=== PATIENT | female | born 1980 | race Caucasian/White ===

== ENCOUNTER → 2017-05-23 | Outpatient (CLI) | payer OTHER ==
[2017-05-23 18:14] LABS: ALBUMIN 3.5 GM/DL (3.2-5.2); ALBUMIN/GLOBULIN RATIO 1.06 (1.00-1.93); ALKALINE PHOSPHATASE 62 U/L (45-117); ALT/SGPT 30 U/L (12-78); ANION GAP 9 MEQ/L (8-16); AST/SGOT 20 U/L (15-37); BLOOD UREA NITROGEN 9 MG/DL (7-18); CALCIUM LEVEL 8.4 MG/DL (8.5-10.1); CARBON DIOXIDE LEVEL 29 MEQ/L (21-32); CHLORIDE LEVEL 100 MEQ/L (98-107); CHOLESTEROL LEVEL 153 MG/DL (<200); CREATININE FOR GFR 0.51 MG/DL (0.55-1.02); FREE T4 1.11 NG/DL (0.76-1.46); GLOMERULAR FILTRATION RATE > 60.0 (>60); GLUCOSE, FASTING 76 MG/DL (70-105); POTASSIUM SERUM 3.6 MEQ/L (3.5-5.1); SODIUM LEVEL 138 MEQ/L (136-145); TOTAL PROTEIN 6.8 GM/DL (6.4-8.2); TRIGLYCERIDES LEVEL 107 MG/DL (<150)
== END ==
LOC: M WUC 12:31
PROVIDERS: ATTEND Nurse Practitioner Family
DX: F41.9 Anxiety disorder, unspecified (principal)

== ENCOUNTER → 2017-05-23 | Outpatient (CLI) | payer OTHER ==
[2017-05-23 17:13] LABS: BASO % 0.4 % (0.0-1.0); EOS % 0.8 % (0.0-3.0); IMMATURE GRANULOCYTE % 0.4 % (0-0); LYMPH # 1.1 10^3/uL (1.5-4.5); LYMPH % 20.2 % (24.0-44.0); MEAN CORPUSCULAR HEMOGLOBIN 29.4 pg (27.0-33.0); MEAN CORPUSCULAR HGB CONC 33.6 g/dl (32.0-36.5); MEAN CORPUSCULAR VOLUME 87.4 fl (80.0-96.0); MONO # 0.6 10^3/uL (0.0-0.8); MONO % 10.9 % (0.0-5.0); NEUTROPHILS # 3.5 10^3/uL (1.8-7.7); NEUTROPHILS % 67.3 % (36.0-66.0); PLATELET COUNT, AUTOMATED 198 10^3/uL (150-450); WHITE BLOOD COUNT 5.3 10^3/uL (4.0-10.0)
[2017-05-24 10:51] LABS: CONTROL LINE MONO INT CTR LINE PRESENT
== END ==
LOC: M WUC 14:10
PROVIDERS: ATTEND Nurse Practitioner Family
DX: B34.9 Viral infection, unspecified (principal)

== ENCOUNTER → 2017-06-03 | Outpatient (CLI) | payer OTHER ==
--- NOTE | 2017-06-03 17:55 | REP ---
CHEST, TWO VIEWS: Two views of the chest are performed. There are patchy infiltrates on the left upper and lower lobes. There are linear atelectatic changes in the right perihilar region. Heart does not appear to be significantly enlarged. Mediastinal silhouette is grossly unchanged. IMPRESSION: Left upper and lower lobe infiltrates. Signed by Federico Bryant MD 06/04/2017 01:15 P
== END ==
LOC: M WUC 15:50
PROVIDERS: ATTEND Nurse Practitioner Family
DX: R05 Cough (principal); R91.8 Other nonspecific abnormal finding of lung field

== ENCOUNTER → 2017-11-22 | Outpatient (CLI) | payer OTHER ==
[2017-11-22 17:11] LABS: ALBUMIN 3.9 GM/DL (3.2-5.2); ALBUMIN/GLOBULIN RATIO 1.18 (1.00-1.93); ALKALINE PHOSPHATASE 64 U/L (45-117); ALT/SGPT 32 U/L (12-78); ANION GAP 6 MEQ/L (8-16); AST/SGOT 21 U/L (7-37); BILIRUBIN,TOTAL 0.5 MG/DL (0.2-1.0); BLOOD UREA NITROGEN 10 MG/DL (7-18); CALCIUM LEVEL 8.9 MG/DL (8.5-10.1); CARBON DIOXIDE LEVEL 31 MEQ/L (21-32); CHLORIDE LEVEL 104 MEQ/L (98-107); CREATININE FOR GFR 0.61 MG/DL (0.55-1.30); GLOMERULAR FILTRATION RATE > 60.0 (>60); GLUCOSE, FASTING 102 MG/DL (70-100); POTASSIUM SERUM 3.7 MEQ/L (3.5-5.1); SODIUM LEVEL 141 MEQ/L (136-145); TOTAL PROTEIN 7.2 GM/DL (6.4-8.2)
== END ==
LOC: M WUC 13:30
DX: R05 Cough (principal)

== ENCOUNTER → 2018-04-15 | Outpatient (REF) | payer OTHER | LOC: M SFHCWAGY 11:14 | DX: Z12.4 Encounter for screening for malignant neoplasm of cervix (principal) ==

== ENCOUNTER → 2018-08-19 | Outpatient (CLI) | payer OTHER ==
[~2018-08-19] MED LIST: CETI10TA PO; CONT1TAB PO; DEXI60CA2 PO; DICY20TA PO; PROBCAP4 PO; VITA100067 PO
[2018-08-19 17:15] LABS: BASO % 0.5 % (0.0-1.0); EOS % 0.6 % (0.0-3.0); HEMATOCRIT 40.8 % (36.0-47.0); HEMOGLOBIN 13.4 g/dl (12.0-15.5); LYMPH # 1.8 10^3/uL (1.5-4.5); LYMPH % 28.4 % (24.0-44.0); MEAN CORPUSCULAR HEMOGLOBIN 27.7 pg (27.0-33.0); MEAN CORPUSCULAR HGB CONC 32.8 g/dl (32.0-36.5); MEAN CORPUSCULAR VOLUME 84.5 fl (80.0-96.0); MONO # 0.3 10^3/uL (0.0-0.8); NEUTROPHILS # 4.1 10^3/uL (1.8-7.7); PLATELET COUNT, AUTOMATED 257 10^3/uL (150-450); RED BLOOD COUNT 4.83 10^6/uL (4.00-5.40); WHITE BLOOD COUNT 6.3 10^3/uL (4.0-10.0)
[2018-08-19 17:28] LABS: ALBUMIN 4.1 GM/DL (3.2-5.2); ALT/SGPT 33 U/L (12-78); AMYLASE 62 U/L (25-115); BILIRUBIN,TOTAL 0.5 MG/DL (0.2-1.0); BLOOD UREA NITROGEN 10 MG/DL (7-18); CARBON DIOXIDE LEVEL 29 MEQ/L (21-32); CHLORIDE LEVEL 101 MEQ/L (98-107); CREATININE FOR GFR 0.67 MG/DL (0.55-1.30); GLOMERULAR FILTRATION RATE > 60.0 (>60); GLUCOSE, FASTING 133 MG/DL (70-100); LIPASE 141 U/L (73-393); POTASSIUM SERUM 3.7 MEQ/L (3.5-5.1); SODIUM LEVEL 138 MEQ/L (136-145); TOTAL PROTEIN 7.2 GM/DL (6.4-8.2)
== END ==
LOC: M WUC 14:38
PROVIDERS: ATTEND Internal Medicine Gastroenterology
DX: R10.12 Left upper quadrant pain (principal)

== ENCOUNTER 2018-08-22 09:36 | Day surgery (SDC) | payer OTHER ==
[~2018-08-22] VITALS: Ht 162.6 cm; Wt 107.0 kg
[~2018-08-22 09:36] MED LIST changes: +LIDOCAINE 2% INJ 100 MG/5 ML SDV (FOR ANES.) As Ordered ONE; +NS 1,000 ML IV ONE; +PROPOFOL 200 MG/20 ML VIAL As Ordered ONE
[2018-08-22] MEDS ORDERED: fentaNYL 100 MCG/2 ML INJECTION (J3010) As Ordered ONE (09:58)
[2018-08-22] MEDS ORDERED: PROPOFOL 200 MG/20 ML VIAL As Ordered ONE (11:21)
--- NOTE | 2018-08-22 11:28 | ROOR ---
Patient Name: Mayra Michel Procedure Date: 08/22/2018 11:04 AM Date of : 1980 Age: 38 Room: [facility] Gender: Female Note Status: Finalized Procedure: Upper GI endoscopy Indications: Abdominal pain in the left upper quadrant, Functional Dyspepsia, Suspected irritable bowel syndrome, Diarrhea Providers: Dylan MARTINEZ MD Referring MD: Yovanny Parker NP Requesting Provider: Medicines: Monitored Anesthesia Care Complications: No immediate complications. Procedure: Pre-Anesthesia Assessment: - The heart rate, respiratory rate, oxygen saturations, blood pressure, adequacy of pulmonary ventilation, and response to care were monitored throughout the procedure. The Endoscope was introduced through the mouth, and advanced to the second part of duodenum. The upper GI endoscopy was accomplished without difficulty. The patient tolerated the procedure well. Findings: The examined esophagus was normal. Scattered minimal inflammation characterized by erythema was found in the gastric antrum. Biopsies were taken with a cold forceps for Helicobacter pylori testing. A single 5 mm sessile polyp was found in the gastric body. The polyp was removed with a cold snare. Resection and retrieval were complete. The exam of the stomach was otherwise normal. The examined duodenum was normal. Biopsies for histology were taken with a cold forceps for evaluation of celiac disease. Impression: - Normal esophagus. - Minimal Gastritis. Biopsied. - A single gastric polyp. Resected and retrieved. - Normal examined duodenum. Biopsied. - (cause for abdominal pain is not determined on this exam) Recommendation: - Observe patient's clinical course. - Continue present medications. - Telephone endoscopist for pathology results in 2 weeks. - Perform a colonoscopy at the next available appointment. - Perform a colonoscopy (date not yet determined). Dylan Martinez MD Dylan MARTINEZ MD 08/22/2018 11:28:10 AM This report has been signed electronically. Number of Addenda: 0 Note Initiated On: 08/22/2018 11:04 AM Estimated Blood Loss: Estimated blood loss: none.
[2018-08-22 11:40] VITALS: BP 148/92
== END 2018-08-22 11:56 | disposition home or self-care (01) ==
LOC: M OPP 09:36
PROVIDERS: ATTEND Internal Medicine Gastroenterology
DX: K29.70 Gastritis, unspecified, without bleeding (principal); K31.7 Polyp of stomach and duodenum; R10.12 Left upper quadrant pain; K30 Functional dyspepsia; R19.7 Diarrhea, unspecified
CPT/HCPCS: 43239; 43251; 88305; J3010

== ENCOUNTER → 2018-08-28 | Outpatient (REF) | payer OTHER ==
[~2018-08-28] MED LIST changes: -LIDOCAINE 2% INJ 100 MG/5 ML SDV (FOR ANES.) As Ordered ONE; -NS 1,000 ML IV ONE; -PROPOFOL 200 MG/20 ML VIAL As Ordered ONE
[2018-08-28 16:35] LABS: INFLUENZA A AMPLIFICATION NEGATIVE (NEGATIVE); INFLUENZA B AMPLIFICATION NEGATIVE (NEGATIVE)
== END ==
LOC: M LAB REF 15:26
PROVIDERS: ATTEND Physician Assistant
DX: J11.1 Influenza due to unidentified influenza virus with other respiratory manifestations (principal)

== ENCOUNTER → 2019-01-01 | Outpatient (REF) | payer OTHER | LOC: M SFHCWAGY 17:18 | PROVIDERS: ATTEND Nurse Practitioner Family | DX: R30.0 Dysuria (principal) ==

== ENCOUNTER → 2019-01-06 | Outpatient (CLI) | payer OTHER ==
--- NOTE | 2019-01-07 03:49 | REP ---
Clinical: Pelvic pain . Technique: Transabdominal pelvic ultrasound followed by transvaginal examination for better evaluation of the endometrium and adnexa with color Doppler evaluation of the ovaries. Findings: Bladder is unremarkable and measures 6.2 x 8.1 x 6.3 cm . Normal anteverted uterus measures 7.2 x 4.2 x 3.9 cm . The endometrial complex measures 6.6 mm thickness. No discrete uterine or endometrial abnormalities are appreciated. IUD in satisfactory position. Nabothian cyst noted. Bilateral ovaries are normal in vascularity without evidence for torsion. Right ovary measures 5.1 x 4.3 x 3.5 cm with 3.6 x 3.1 x 3.3 cm hyperechoic complex mass possibly dermoid or hemorrhagic cyst ; R I = 0.46 . Left ovary measures 3.2 x 1.2 x 2.7 cm ; R I = 0.47 . No pelvic fluid or adnexal mass lesion . Impression: 1. Normal uterus and left ovary. 2. Right ovary includes hyperechoic complex lesion possibly hemorrhagic cyst or dermoid. Consider reevaluation in 4-6 weeks.
== END ==
LOC: M WHC 13:30
PROVIDERS: ATTEND Nurse Practitioner Family
DX: R10.2 Pelvic and perineal pain (principal)

== ENCOUNTER → 2019-01-19 | Outpatient (CLI) | payer OTHER ==
[2019-01-19 16:46] LABS: BASO % 0.7 % (0.0-1.0); EOS # 0.1 10^3/uL (0.0-0.50); EOS % 1.2 % (0.0-3.0); HEMATOCRIT 38.4 % (36.0-47.0); HEMOGLOBIN 12.7 g/dl (12.0-15.5); LYMPH % 33.9 % (24.0-44.0); MEAN CORPUSCULAR HEMOGLOBIN 28.2 pg (27.0-33.0); MEAN CORPUSCULAR HGB CONC 33.1 g/dl (32.0-36.5); MEAN CORPUSCULAR VOLUME 85.1 fl (80.0-96.0); MONO # 0.5 10^3/uL (0.0-0.8); MONO % 8.5 % (0.0-5.0); NEUTROPHILS # 3.3 10^3/uL (1.8-7.7); NEUTROPHILS % 55.2 % (36.0-66.0); PLATELET COUNT, AUTOMATED 243 10^3/uL (150-450); RED BLOOD COUNT 4.51 10^6/uL (4.00-5.40)
[2019-01-19 16:51] LABS: ALBUMIN 3.8 GM/DL (3.2-5.2); ALT/SGPT 34 U/L (12-78); BILIRUBIN,TOTAL 0.4 MG/DL (0.2-1.0); BLOOD UREA NITROGEN 11 MG/DL (7-18); CALCIUM LEVEL 8.8 MG/DL (8.5-10.1); CARBON DIOXIDE LEVEL 30 MEQ/L (21-32); CHLORIDE LEVEL 104 MEQ/L (98-107); CREATININE FOR GFR 0.75 MG/DL (0.55-1.30); FREE T4 0.87 NG/DL (0.76-1.46); GLOMERULAR FILTRATION RATE > 60.0 (>60); GLUCOSE, FASTING 103 MG/DL (70-100); POTASSIUM SERUM 3.7 MEQ/L (3.5-5.1); SODIUM LEVEL 139 MEQ/L (136-145)
== END ==
LOC: M WUC 14:03
PROVIDERS: ATTEND Nurse Practitioner Family
DX: R00.2 Palpitations (principal)

== ENCOUNTER → 2019-03-05 | Outpatient (CLI) | payer OTHER ==
--- NOTE | 2019-03-05 16:37 | REP ---
Clinical: Follow-up right ovarian cyst. Comparison: 01/06/2019 . Technique: Transabdominal pelvic ultrasound followed by transvaginal examination for better evaluation of the endometrium and adnexa with color Doppler evaluation of the ovaries. Findings: Bladder is unremarkable and measures 8.3 x 6.7 x 5.2 cm . Heterogeneous anteverted uterus measures 8.1 x 4.5 x 5.9 cm and includes 1.2 x 1.0 x 0.7 cm left intramural fibroid. The endometrial complex measures 7.6 mm thickness. IUD in satisfactory position. Subcentimeter Nabothian cysts noted. Bilateral ovaries are normal in appearance and previously noted right ovarian cyst has resolved. Right ovary measures 3.7 x 2.5 x 2.3 cm ; Left ovary measures 3.1 x 1.7 x 3.3 cm with 1.7 cm follicle. No pelvic fluid or adnexal mass lesion . Impression: 1. 1.2 cm left intramural fibroid. 2. Previous right ovarian cyst resolved.
== END ==
LOC: M WHC 15:25
PROVIDERS: ATTEND Nurse Practitioner Family
DX: N83.201 Unspecified ovarian cyst, right side (principal)

== ENCOUNTER → 2019-03-31 | Outpatient (CLI) | payer OTHER ==
[2019-03-31 20:21] LABS: BASO % 0.4 % (0.0-1.0); EOS # 0.1 10^3/uL (0.0-0.50); EOS % 0.7 % (0.0-3.0); HEMATOCRIT 38.2 % (36.0-47.0); HEMOGLOBIN 12.6 g/dl (12.0-15.5); LYMPH % 29.5 % (24.0-44.0); MEAN CORPUSCULAR HEMOGLOBIN 27.4 pg (27.0-33.0); MONO # 0.6 10^3/uL (0.0-0.8); MONO % 9.2 % (0.0-5.0); NEUTROPHILS # 4.1 10^3/uL (1.8-7.7); NEUTROPHILS % 59.3 % (36.0-66.0); PLATELET COUNT, AUTOMATED 243 10^3/uL (150-450); WHITE BLOOD COUNT 6.9 10^3/uL (4.0-10.0)
[2019-03-31 20:22] LABS: ALBUMIN 3.9 GM/DL (3.2-5.2); ALT/SGPT 39 U/L (12-78); BILIRUBIN,TOTAL 0.5 MG/DL (0.2-1.0); BLOOD UREA NITROGEN 9 MG/DL (7-18); CARBON DIOXIDE LEVEL 30 MEQ/L (21-32); CHLORIDE LEVEL 103 MEQ/L (98-107); CREATININE FOR GFR 0.71 MG/DL (0.55-1.30); GLOMERULAR FILTRATION RATE > 60.0 (>60); GLUCOSE, FASTING 80 MG/DL (70-100); POTASSIUM SERUM 3.8 MEQ/L (3.5-5.1); SODIUM LEVEL 140 MEQ/L (136-145); TOTAL PROTEIN 6.9 GM/DL (6.4-8.2)
== END ==
LOC: M WUC 16:41
PROVIDERS: ATTEND Family Medicine
DX: R10.11 Right upper quadrant pain (principal)

== ENCOUNTER → 2019-04-29 | Outpatient (CLI) | payer OTHER ==
--- NOTE | 2019-04-29 18:28 | REP ---
MRI LEFT KNEE: TECHNIQUE: Axial proton density fat saturation, sagittal proton density T2 STIR, water excitation, coronal proton density, proton density fat saturation. The menisci show no evidence of a tear. The anterior cruciate ligament appears partially torn in its tibial insertion site. The posterior cruciate ligament is intact. The collateral ligaments, extensor mechanism and medial and lateral patellar retinacula are intact. There is mild chondromalacia of the lateral patellar facet. There is also mild chondromalacia of the medial femoral condyle. Dilated blood vessels are seen throughout the medial femoral condyle consistent with an intraosseous hemangioma. There is no bone marrow edema or occult fracture. There is a small joint effusion. There is no popliteal cyst. IMPRESSION: There appears to be a partial tear of the anterior cruciate ligament at the tibial insertion site. No meniscal tear is seen. Collateral ligaments are intact. There is mild chondromalacia of the lateral patellar facet and medial femoral condyle. 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 No bone marrow edema. Small joint effusion. Electronically Signed by Federico Bryant MD 04/30/2019 09:03 A
== END ==
LOC: M RAD 16:07
PROVIDERS: ATTEND Physician Assistant
DX: M25.562 Pain in left knee (principal)

== ENCOUNTER → 2019-08-27 | Outpatient (CLI) | payer OTHER ==
[2019-08-27 20:08] LABS: HEMATOCRIT 38.2 % (36.0-47.0); HEMOGLOBIN 11.9 g/dl (12.0-15.5); MEAN CORPUSCULAR HEMOGLOBIN 26.3 pg (27.0-33.0); MEAN CORPUSCULAR HGB CONC 31.2 g/dl (32.0-36.5); MEAN CORPUSCULAR VOLUME 84.5 fl (80.0-96.0); PLATELET COUNT, AUTOMATED 241 10^3/uL (150-450); RED BLOOD COUNT 4.52 10^6/uL (4.00-5.40); WHITE BLOOD COUNT 6.8 10^3/uL (4.0-10.0)
[2019-08-27 20:37] LABS: ALBUMIN 3.8 GM/DL (3.2-5.2); ALT/SGPT 62 U/L (12-78); BILIRUBIN,TOTAL 0.3 MG/DL (0.2-1.0); BLOOD UREA NITROGEN 11 MG/DL (7-18); CALCIUM LEVEL 8.5 MG/DL (8.5-10.1); CARBON DIOXIDE LEVEL 30 MEQ/L (21-32); CHLORIDE LEVEL 105 MEQ/L (98-107); CREATININE FOR GFR 0.74 MG/DL (0.55-1.30); GLOMERULAR FILTRATION RATE > 60.0 (>60); GLUCOSE, FASTING 85 MG/DL (70-100); POTASSIUM SERUM 3.7 MEQ/L (3.5-5.1); SODIUM LEVEL 139 MEQ/L (136-145); TOTAL PROTEIN 6.8 GM/DL (6.4-8.2)
== END ==
LOC: M WUC 17:20
PROVIDERS: ATTEND Family Medicine
DX: Z01.812 Encounter for preprocedural laboratory examination (principal)

== ENCOUNTER → 2020-02-03 | Outpatient (CLI) | payer OTHER ==
--- NOTE | 2020-02-03 15:53 | REP ---
Clinical: "Tumor" Technique: AP, lateral, bilateral oblique views of the left knee. Comparison: None. Findings: There is a 3.6 cm ovoid sclerotic process involving the medial femoral condyle. Remainder examination appears relatively normal. Correlation with history of tumor and/or surgical debridement is required for more detailed evaluation. Electronically Signed by Fam Cuenca MD 02/03/2020 02:41 P
== END ==
LOC: M WUC 14:31
PROVIDERS: ATTEND Orthopaedic Surgery
DX: R89.5 Abnormal microbiological findings in specimens from other organs, systems and tissues (principal); M89.9 Disorder of bone, unspecified; M79.605 Pain in left leg; M25.562 Pain in left knee

== ENCOUNTER → 2020-03-02 | Outpatient (CLI) | payer OTHER ==
--- NOTE | 2020-04-22 14:12 | REP ---
MRI OF THE LEFT KNEE WITHOUT CONTRAST: This report was delayed due to a protracted network disruption experienced by this facility. COMPARISON: 02/03/20 radiographs. No comparison MRI study. HISTORY: Chronic pain left knee. Tumor removed 09/10/19. History of torn ACL. TECHNIQUE: Axial, coronal and sagittal imaging planes are utilized. T1 and T2- weighted scans are included with and without fat saturation. FINDINGS: There is a postoperative area in the medial femoral condyle at the metaphysis epiphyseal junction characterized by low T1, low T2 signal intensity and sclerosis radiographically. This is compatible with post excision methyl methacrylate. The area measures 2.7 cm x 2.0 cm x 1.5 cm. There is some adjacent postoperative fibrosis in the soft tissues. There is thickening and some increased signal intensity along the proximal fibers and the proximal attachment of the medial collateral ligament adjacent to the lesion. There is no evidence of lateral collateral ligament disruption. The anterior and posterior cruciate ligaments appear intact. The patellar and quadriceps tendons have an intact appearance. There is some cellular marrow change, mild in degree in the distal femur and proximal tibia normal marrow. No bony destructive lesion is seen. There are cystic-appearing areas of T2 hyperintensity in the medial femoral condyle metaphysis anteriorly adjacent to the operative site. This may be small enchondroma or postoperative change. No periosteal reaction is seen. No inflammatory edema is seen. Minimal joint effusion is visible. There is no evidence of Bishop's cyst. IMPRESSION: Postoperative changes in the medial femoral condyle, as above. MTDD
== END ==
LOC: M RAD 07:51
PROVIDERS: ATTEND Physician Assistant Surgical
DX: M79.605 Pain in left leg (principal); G89.29 Other chronic pain; M23.52 Chronic instability of knee, left knee; M25.562 Pain in left knee

== ENCOUNTER → 2020-03-24 | Outpatient (REF) | payer OTHER | LOC: M LAB REF 18:40 | PROVIDERS: ATTEND Nurse Practitioner Family | DX: Z12.4 Encounter for screening for malignant neoplasm of cervix (principal) ==

== ENCOUNTER 2020-06-23 15:49 | Emergency (ER) | payer OTHER ==
[~2020-06-23] VITALS: Ht 162.6 cm; Wt 111.8 kg
[2020-06-23] MEDS ORDERED: METF500T13 PO (16:16)
[2020-06-23] MEDS ORDERED: FAMO20TA PO (16:16)
[2020-06-23] MEDS ORDERED: KETOROLAC 30 MG/ML 1ML VIAL IV ONE (16:45)
[2020-06-23] MEDS ORDERED: NS 1,000 ML IV ONE (16:45)
[2020-06-23] MEDS ORDERED: ONDANSETRON 4MG/2ML VIAL IV ONE (16:45)
[2020-06-23 17:28] LABS: BASO % 0.6 % (0.0-1.0); EOS # 0.1 10^3/uL (0.0-0.5); EOS % 1.3 % (0.0-3.0); HEMATOCRIT 36.5 % (36.0-47.0); HEMOGLOBIN 11.8 g/dl (12.0-15.5); LYMPH # 2.2 10^3/uL (1.5-5.0); LYMPH % 33.6 % (24.0-44.0); MEAN CORPUSCULAR HEMOGLOBIN 26.5 pg (27.0-33.0); MEAN CORPUSCULAR HGB CONC 32.3 g/dl (32.0-36.5); MEAN CORPUSCULAR VOLUME 81.8 fl (80.0-96.0); MONO # 0.5 10^3/uL (0.0-0.8); MONO % 8.3 % (0.0-5.0); NEUTROPHILS # 3.6 10^3/uL (1.5-8.5); NEUTROPHILS % 55.9 % (36.0-66.0); PLATELET COUNT, AUTOMATED 257 10^3/uL (150-450); RED BLOOD COUNT 4.46 10^6/uL (4.00-5.40); WHITE BLOOD COUNT 6.4 10^3/uL (4.0-10.0)
[2020-06-23 17:39] LABS: INR 0.89; PROTHROMBIN TIME 12.2 SECONDS (12.5-14.3)
[2020-06-23 17:40] LABS: PARTIAL THROMBOPLASTIN TIME 25.6 SECONDS (24.2-38.5)
[2020-06-23 18:03] LABS: ALT/SGPT 44 U/L (12-78); BILIRUBIN,DIRECT 0.1 MG/DL (0.0-0.2); BILIRUBIN,TOTAL 0.4 MG/DL (0.2-1.0); CK-MB VALUE MASS 1.2 NG/ML (<3.6); CPK CREATINE PHOSPHOKINASE 120 U/L (26-192); LIPASE 110 U/L (73-393); TOTAL PROTEIN 7.2 GM/DL (6.4-8.2); TROPONIN I < 0.02 NG/ML (< 0.10)
[2020-06-23] MEDS ORDERED: ISOVUE-370 76% 100ML VIAL As Ordered ONE (18:56)
[2020-06-23] MEDS ORDERED: MORPHINE 4 MG/ML 1ML VIAL/SYRINGE (J2270) IV ONE (19:00)
--- NOTE | 2020-06-23 19:47 | REPVR ---
PROCEDURE INFORMATION: Exam: CT Abdomen And Pelvis With Contrast Exam date and time: 06/23/2020 7:06 PM Age: 40 years old Clinical indication: Abdominal pain; Localized; Left upper quadrant (luq); Additional info: HX of gerd, luq pain, R/O perf ulcer/infectious process TECHNIQUE: Imaging protocol: Computed tomography of the abdomen and pelvis with intravenous contrast. Radiation optimization: All CT scans at this facility use at least one of these dose optimization techniques: automated exposure control; mA and/or kV adjustment per patient size (includes targeted exams where dose is matched to clinical indication); or iterative reconstruction. Contrast material: ISOVUE 370; Contrast volume: 100 ml; Contrast route: INTRAVENOUS (IV); COMPARISON: CT ABD PELVIS WITH CONTRAST 11/27/2015 7:51 PM FINDINGS: Lungs: The lung bases are unremarkable. Liver: There is a diffuse decrease in hepatic parenchymal density, consistent with fatty infiltration. Gallbladder and bile ducts: Cholecystectomy. Pancreas: The pancreas is normal. Spleen: The spleen is normal. Adrenal glands: The adrenal glands are unremarkable. Kidneys and ureters: The kidneys are unremarkable. Stomach and bowel: There is no evidence of intestinal obstruction. Appendix: No evidence of appendicitis. Intraperitoneal space: Unremarkable. No free air. No significant fluid collection. Vasculature: The aorta is unremarkable. Lymph nodes: Unremarkable. No enlarged lymph nodes. Urinary bladder: The bladder is unremarkable. Reproductive: IUD is seen in the uterus and follicles are noted in the ovaries. Bones/joints: No significant skeletal findings. Soft tissues: There is a fat-containing umbilical hernia. IMPRESSION: No acute findings in the abdomen or pelvis. Electronically signed by: Saranya Turner On 06/23/2020 19:47:15 PM
[2020-06-23] MEDS ORDERED: GI COCKTAIL 50ML BTL(HYOSCYAMINE/MAALOX/LIDOCAINE VISCOUS)(1:3:1) PO ONE (20:00)
[2020-06-23] MEDS ORDERED: CARA1TAB6 PO (20:39)
[2020-06-23] MEDS ORDERED: PANTOPRAZOLE 40MG VIAL (C9113 PER 1) IV ONE (20:45)
[2020-06-23 20:59] VITALS: BP 140/84
--- NOTE | 2020-06-24 21:30 | ECGEPIP ---
[facility] - ED Test Date: 2020-06-23 Pat Name: ELADIA ESCOBAR Department: Room: - Gender: Female Scrub Woman: DENI : 1980 Requested By: ARIK GONZALES Order Number: [id number] Reading MD: Farideh Monroe Measurements Intervals Hood Rate: 80 P: 44 MI: 164 QRS: 5 QRSD: 82 T: 29 QT: 379 QTc: 438 Interpretive Statements SINUS RHYTHM NO PRIOR Electronically Signed on 06-24-2020 21:29:52 EST by Farideh Monroe
== END 2020-06-23 21:17 | disposition home or self-care (01) ==
LOC: M ED 15:49
DX: R10.12 Left upper quadrant pain (principal); K21.9 Gastro-esophageal reflux disease without esophagitis; Z90.49 Acquired absence of other specified parts of digestive tract; Z79.899 Other long term (current) drug therapy; Z79.84 Long term (current) use of oral hypoglycemic drugs
CPT/HCPCS: 74177; 80047; 80076; 81001; 82550; 82553; 83690; 84484; 84702; 85025; 85610; 85730; 87086; 93005; 96361; 96374; 96375; 99284; C9113; J1885; J2270; J2405; Q9967

== ENCOUNTER → 2020-06-29 | Outpatient (CLI) | payer OTHER ==
[~2020-06-29] MED LIST changes: +CARA1TAB6 PO; +E-Z-GAS II EFFERVESCENT PACKET (SODIUM BICARB./CITRIC ACID/SIMETHICONE) As Ordered ONE; +E-Z-HD 98% w/w 340GM SUSP BTL As Ordered ONE; +E-Z-PAQUE 96% w/w SUSP 176GM BTL As Ordered ONE; +FAMO20TA PO; +METF500T13 PO
--- NOTE | 2020-06-29 17:03 | REP ---
INDICATION: LEFT UPPER QUAD PAIN. COMPARISON: None TECHNIQUE: This procedure was performed by Daksha Leos [facility], under the direct supervision of Dr. Bryant. Images were reviewed with Dr. Bryant prior to dictation. Liquid barium and gas producing crystals were given in the erect position, as well as liquid barium in the prone oblique position in order to perform a double contrast upper GI examination. 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 The intestinal gas pattern is unremarkable. There are surgical chad in the right upper quadrant. There is an IUD in the pelvis. The oral and pharyngeal stages of deglutition were unremarkable. Esophageal transport is prompt and efficient and there is no evidence of esophagitis, stricture, or mucosal ring. There is no evidence of a hiatal hernia. Gastroesophageal reflux was visualized just inferior to the thoracic inlet.. The stomach nuñez are normally outlined. The rugal folds are smooth and regular. There is no gastritis, neoplasm, or ulcerative disease. The duodenal nuñez are normally outlined. The mucosal folds are smooth and regular. There is no duodenitis, peptic ulcer disease or neoplasm. The visualized portion of the proximal small bowel appears normal in course and caliber. IMPRESSION: Gastroesophageal reflux to the level just inferior to the thoracic inlet. Otherwise unremarkable upper GI examination. 0.6 minutes of fluoroscopy time was utilized for this procedure. Some fluoroscopic images are performed with last image hold technology. These images require no additional radiation. <Electronically signed by Daksha Leos > 06/29/20 [id number] <Electronically signed by Federico Bryant > 06/29/20 [id number]
== END ==
LOC: M RAD 08:01
PROVIDERS: ATTEND Family Medicine
DX: K21.9 Gastro-esophageal reflux disease without esophagitis (principal); R10.12 Left upper quadrant pain

== ENCOUNTER → 2020-07-27 | Outpatient (CLI) | payer OTHER ==
[~2020-07-27] MED LIST changes: -E-Z-GAS II EFFERVESCENT PACKET (SODIUM BICARB./CITRIC ACID/SIMETHICONE) As Ordered ONE; -E-Z-HD 98% w/w 340GM SUSP BTL As Ordered ONE; -E-Z-PAQUE 96% w/w SUSP 176GM BTL As Ordered ONE
[2020-07-27 16:25] LABS: HEMATOCRIT 38.4 % (36.0-47.0); HEMOGLOBIN 12.2 g/dl (12.0-15.5); MEAN CORPUSCULAR HEMOGLOBIN 26.5 pg (27.0-33.0); MEAN CORPUSCULAR HGB CONC 31.8 g/dl (32.0-36.5); MEAN CORPUSCULAR VOLUME 83.5 fl (80.0-96.0); PLATELET COUNT, AUTOMATED 239 10^3/uL (150-450); WHITE BLOOD COUNT 6.4 10^3/uL (4.0-10.0)
[2020-07-27 16:35] LABS: ALT/SGPT 37 U/L (12-78); BILIRUBIN,TOTAL 0.4 MG/DL (0.2-1.0); BLOOD UREA NITROGEN 8 MG/DL (7-18); CALCIUM LEVEL 9.3 MG/DL (8.5-10.1); CARBON DIOXIDE LEVEL 33 MEQ/L (21-32); CHLORIDE LEVEL 102 MEQ/L (98-107); CREATININE FOR GFR 0.68 MG/DL (0.55-1.30); GLOMERULAR FILTRATION RATE > 60.0 (>60); GLUCOSE, FASTING 99 MG/DL (70-100); POTASSIUM SERUM 4.1 MEQ/L (3.5-5.1); SODIUM LEVEL 137 MEQ/L (136-145)
== END ==
LOC: M WUC 10:31
PROVIDERS: ATTEND Family Medicine
DX: R53.83 Other fatigue (principal)

== ENCOUNTER → 2020-08-16 | Outpatient (CLI) | payer OTHER ==
[~2020-08-16] MED LIST changes: -DICY20TA PO; +DICY20TA3 PO
--- NOTE | 2020-08-16 08:43 | REPVR ---
PROCEDURE INFORMATION: Exam: MR Head Without Contrast Exam date and time: 08/16/2020 8:35 AM Age: 40 years old Clinical indication: Pain; Headache and other: PT states parathesia and personal concern for ms; Migraine; Aura effect not specified; Additional info: Headaches TECHNIQUE: Imaging protocol: MR of the head without contrast. 3D rendering (Not supervised by radiologist): MIP and/or 3D reconstructed images were created by the technologist. COMPARISON: No relevant prior studies available. FINDINGS: Brain: No evidence of restricted diffusion to suggest an acute infarct. No FLAIR signal abnormality to suggest multiple scleroses are small vessel ischemic changes. No mass, midline shift, or mass effect. No evidence of hemorrhage. Cerebral ventricles: Normal. No ventriculomegaly. Bones/joints: Unremarkable. Paranasal sinuses: Normal as visualized. No acute sinusitis. Mastoid air cells: Normal as visualized. No mastoid effusion. Orbits: Unremarkable. Soft tissues: Unremarkable. IMPRESSION: No acute intracranial abnormality. No evidence of acute infarct or FLAIR signal abnormality to suggest demyelinating disease. Electronically signed by: Natalya Odom On 08/16/2020 08:43:39 AM
== END ==
LOC: M RAD 06:40
PROVIDERS: ATTEND Family Medicine
DX: R51.9 Headache, unspecified (principal); R20.2 Paresthesia of skin

== ENCOUNTER → 2020-09-06 | Outpatient (REF) | payer OTHER ==
[2020-09-06 12:46] LABS: MAGNESIUM LEVEL 1.9 MG/DL (1.8-2.4); PHOSPHORUS LEVEL 3.3 MG/DL (2.5-4.9); TOTAL 25(OH) VITAMIN D 37.3 NG/ML (30.0-100.0)
[2020-09-07 20:07] LABS: ANA (HEP2) Negative (.); SSA SJOGRENS A <0.2 AI (0.0-0.9); SSB SJOGRENS B <0.2 AI (0.0-0.9)
== END ==
LOC: M SFHCRHEU 10:03
PROVIDERS: ATTEND Internal Medicine
DX: M79.10 Myalgia, unspecified site (principal); H04.123 Dry eye syndrome of bilateral lacrimal glands

== ENCOUNTER → 2020-10-20 | Outpatient (CLI) | payer OTHER ==
--- NOTE | 2020-10-20 15:06 | REPVR ---
PROCEDURE INFORMATION: Exam: CT Maxillofacial Without Contrast, Sinus Exam date and time: 10/20/2020 2:42 PM Age: 40 years old Clinical indication: Pain; Other: Sinus; Additional info: Chronic pansinusitis TECHNIQUE: Imaging protocol: CT Maxillofacial without contrast. Focus on the sinuses. Radiation optimization: All CT scans at this facility use at least one of these dose optimization techniques: automated exposure control; mA and/or kV adjustment per patient size (includes targeted exams where dose is matched to clinical indication); or iterative reconstruction. COMPARISON: No relevant prior studies available. FINDINGS: Frontal sinuses: Normal. No air-fluid levels. Ethmoid air cells: Normal. No air-fluid levels. Sphenoid sinuses: Normal. No air-fluid levels. Maxillary sinuses: Normal. No air-fluid levels. Ostiomeatal units are patent. Nasal cavity/Septum: Unremarkable. Orbital cavity: Orbits are normal. Globes are unremarkable. Bones/joints: Unremarkable. Soft tissues: Unremarkable. IMPRESSION: Unremarkable sinuses. Electronically signed by: Hung Brenner On 10/20/2020 15:06:31 PM
== END ==
LOC: M RAD 14:35
PROVIDERS: ATTEND Otolaryngology
DX: J32.4 Chronic pansinusitis (principal)

== ENCOUNTER → 2021-01-10 | Outpatient (CLI) | payer OTHER | LOC: M WUC 12:12 | PROVIDERS: ATTEND Internal Medicine | DX: M79.10 Myalgia, unspecified site (principal) ==

== ENCOUNTER → 2021-03-02 | Outpatient (CLI) | payer OTHER ==
[2021-03-02 11:25] LABS: HEMOGLOBIN A1c 5.4 %
[2021-03-02 12:00] LABS: FOLATE > 24.0 NG/ML; FREE T4 0.87 NG/DL (0.76-1.46); FREE THYROXINE INDEX 3.4 % (1.3-4.8); RHEUMATOID FACTOR QUANT < 10.0 IU/ML (<15.0); T UPTAKE 33 % (30-39); THYROXINE (T4) 10.2 UG/DL (4.5-12.0); TOTAL PROTEIN 6.9 GM/DL (6.4-8.2); VITAMIN B12 LEVEL 253 PG/ML
[2021-03-03 10:53] LABS: ALBUMIN 4.24 GM/DL (3.29-5.55); ALBUMIN % 61.4 % (55.8-66.1); ALPHA-1-GLOBULIN % 4.2 % (2.9-4.9); ALPHA-1-GLOBULINS 0.29 GM/DL (0.17-0.41); ALPHA-2-GLOBULINS 0.68 GM/DL (0.42-0.99); ALPHA-2-GLOBULINS % 9.9 % (7.1-11.8); BETA-1-GLOBULINS % 7.2 % (4.7-7.2); BETA-2-GLOBULINS 0.28 GM/DL (0.19-0.55); BETA-2-GLOBULINS % 4.1 % (3.2-6.5); GAMMA GLOBULIN % 13.2 % (11.1-18.8); GAMMA GLOBULINS 0.91 GM/DL (0.65-1.58)
== END ==
LOC: M WUC 08:56
PROVIDERS: ATTEND Psychiatry & Neurology Neurology
DX: M54.2 Cervicalgia (principal); M54.5 Low back pain; G81.94 Hemiplegia, unspecified affecting left nondominant side

== ENCOUNTER → 2021-04-24 | Outpatient (CLI) | payer OTHER ==
[~2021-04-24] MED LIST changes: +ACET-897 PO; +ASPI-161 PO; +BACITAB PO; +CETI10TA4 PO; +CYAN1000VL IM; +D-50CAP PO; +FERR325T3 PO; +GABA-282; +GABA-282 PO; +GABA-283 PO; +IBUP-1720 PO; +MUCI30TA5 PO; +PRED10PA2 PO; +PROAAER10 INH; +TESS100C PO; +TIZA1TAB12 PO; +TIZA2TA; +TIZA4CAP PO; +VITMTA PO; +[UNRECOGNIZED DRUG - CODE] PO
[2021-04-24 12:39] LABS: ALBUMIN 3.8 GM/DL (3.2-5.2); ALT/SGPT 34 U/L (12-78); BILIRUBIN,TOTAL 0.6 MG/DL (0.2-1.0); BLOOD UREA NITROGEN 10 MG/DL (7-18); CALCIUM LEVEL 8.8 MG/DL (8.5-10.1); CARBON DIOXIDE LEVEL 28 MEQ/L (21-32); CHLORIDE LEVEL 103 MEQ/L (98-107); CHOLESTEROL LEVEL 152 MG/DL (<200); CHOLESTEROL RISK RATIO 3.897 (<5); CREATININE FOR GFR 0.61 MG/DL (0.55-1.30); FREE T4 1.07 NG/DL (0.76-1.46); GLOMERULAR FILTRATION RATE > 60.0 (>58); GLUCOSE, FASTING 92 MG/DL (70-100); HDL CHOLESTEROL 39 MG/DL (>40); LDL CHOLESTEROL 79 MG/DL (<100); NON-HDL-C 113 MG/DL; POTASSIUM SERUM 3.7 MEQ/L (3.5-5.1); SODIUM LEVEL 139 MEQ/L (136-145); TOTAL PROTEIN 6.9 GM/DL (6.4-8.2); TRIGLYCERIDES LEVEL 172 MG/DL (<150)
[2021-04-29 18:07] LABS: INSULIN FREE 11 uU/mL (.); INSULIN TOTAL2 11 uU/mL (.)
== END ==
LOC: M WUC 08:56
PROVIDERS: ATTEND Nurse Practitioner Family
DX: E88.81 Metabolic syndrome and other insulin resistance (principal)

== ENCOUNTER 2021-05-09 22:15 | Inpatient (IN) | payer OTHER ==
[~2021-05-09] VITALS: Ht 162.6 cm; Wt 104.2 kg
[2021-05-09] MEDS: MULTIVITAMINS/MINERALS THERAP 1 TAB PO SCH (21:00)
[~2021-05-09 22:15] MED LIST changes: -ACET-897 PO; -ASPI-161 PO; -BACITAB PO; -CETI10TA4 PO; -CYAN1000VL IM; -D-50CAP PO; -FERR325T3 PO; -GABA-282; -GABA-282 PO; -GABA-283 PO; -IBUP-1720 PO; -MUCI30TA5 PO; -PRED10PA2 PO; -PROAAER10 INH; -TESS100C PO; -TIZA1TAB12 PO; -TIZA2TA; -TIZA4CAP PO; -VITMTA PO; -[UNRECOGNIZED DRUG - CODE] PO
[2021-05-09] MEDS ORDERED: TIZA2TA (22:46)
[2021-05-09] MEDS ORDERED: GABA-282 (22:46)
[2021-05-10] MEDS ORDERED: COMBIVENT RESPIMAT 100-20MCG INHALER 4GM INH ONE (00:20)
[2021-05-10] MEDS ORDERED: ACETAMINOPHEN TAB 650MG DOSE (2X325MG) PO ONE (00:20)
[2021-05-10] MEDS ORDERED: dexameTHASONE 20MG/5ML VIAL (J1100 PER 1MG) IV ONE (00:20)
[2021-05-10 00:51] LABS: BASO % 0.3 % (0.0-1.0); D-DIMER QUANT 487.54 ng/ml (<500); EOS % 0.3 % (0.0-3.0); HEMATOCRIT 37.6 % (36.0-47.0); HEMOGLOBIN 12.3 g/dl (12.0-15.5); LYMPH # 0.8 10^3/uL (1.5-5.0); LYMPH % 22.8 % (24.0-44.0); MEAN CORPUSCULAR HEMOGLOBIN 26.4 pg (27.0-33.0); MEAN CORPUSCULAR HGB CONC 32.7 g/dl (32.0-36.5); MEAN CORPUSCULAR VOLUME 80.7 fl (80.0-96.0); MONO # 0.2 10^3/uL (0.0-0.8); MONO % 4.3 % (2.0-8.0); NEUTROPHILS # 2.5 10^3/uL (1.5-8.5); NEUTROPHILS % 71.7 % (36.0-66.0); PLATELET COUNT, AUTOMATED 158 10^3/uL (150-450); RED BLOOD COUNT 4.66 10^6/uL (4.00-5.40); WHITE BLOOD COUNT 3.5 10^3/uL (4.0-10.0)
[2021-05-10 01:54] LABS: ALBUMIN 3.2 GM/DL (3.2-5.2); ALT/SGPT 39 U/L (12-78); BILIRUBIN,DIRECT 0.1 MG/DL (0.0-0.2); BILIRUBIN,TOTAL 0.4 MG/DL (0.2-1.0); BLOOD UREA NITROGEN 8 MG/DL (7-18); CALCIUM LEVEL 8.4 MG/DL (8.5-10.1); CARBON DIOXIDE LEVEL 29 MEQ/L (21-32); CHLORIDE LEVEL 104 MEQ/L (98-107); CK-MB VALUE MASS 1.1 NG/ML (<3.6); CPK CREATINE PHOSPHOKINASE 103 U/L (26-192); CREATININE FOR GFR 0.53 MG/DL (0.55-1.30); GLOMERULAR FILTRATION RATE > 60.0 (>58); GLUCOSE, FASTING 112 MG/DL (70-100); MB/CK RELATIVE INDEX 1.07 (< OR =4); NT-PRO BNP 63 PG/ML (<125); POTASSIUM SERUM 2.9 MEQ/L (3.5-5.1); SODIUM LEVEL 140 MEQ/L (136-145); TOTAL PROTEIN 6.7 GM/DL (6.4-8.2); TROPONIN I < 0.02 NG/ML (< 0.10)
[2021-05-10 01:56] LABS: RSV AMPLIFICATION NEGATIVE (NEGATIVE)
[2021-05-10] MEDS ORDERED: KCL 10MEQ/100ML SWI (KRUN) 10 MEQ in IV 1 EA IV ONE (02:10)
[2021-05-10] MEDS ORDERED: POTASSIUM CHLORIDE 10MEQ SR TABLET PO ONE (02:10)
--- NOTE | 2021-05-10 02:14 | REPVR ---
PROCEDURE INFORMATION: Exam: XR Chest Exam date and time: 05/10/2021 12:30 AM Age: 41 years old Clinical indication: Cough; Additional info: Dyspnea/cough TECHNIQUE: Imaging protocol: XR of the chest. Views: 1 view. COMPARISON: CR CHEST 2 VIEW 11/22/2017 12:40 PM FINDINGS: Lungs: Patchy basilar airspace consolidation, worse on the left. Pleural spaces: No pleural effusion. No pneumothorax. Heart/Mediastinum: Unremarkable. No cardiomegaly. Bones/joints: Unremarkable. IMPRESSION: Bilateral pneumonia. Electronically signed by: Colton Prieto On 05/10/2021 02:13:43 AM
[2021-05-10 03:15] LABS: MAGNESIUM LEVEL 1.6 MG/DL (1.8-2.4)
[2021-05-10] MEDS ORDERED: TIZA1TAB12 PO (03:24)
[2021-05-10] MEDS ORDERED: BACITAB PO (03:24)
[2021-05-10] MEDS ORDERED: VITMTA PO (03:24)
[2021-05-10] MEDS ORDERED: IBUP-1720 PO (03:24)
[2021-05-10] MEDS ORDERED: FERR325T3 PO (03:24)
[2021-05-10] MEDS ORDERED: METF500T13 PO (03:24)
[2021-05-10] MEDS ORDERED: ASPI-161 PO (03:24)
[2021-05-10] MEDS ORDERED: MUCI30TA5 PO (03:24)
[2021-05-10] MEDS ORDERED: ACET-897 PO (03:24)
[2021-05-10] MEDS ORDERED: D-50CAP PO (03:24)
[2021-05-10] MEDS ORDERED: GABA-282 PO (03:24)
[2021-05-10] MEDS ORDERED: CYAN1000VL IM (03:24)
[2021-05-10] MEDS ORDERED: CETI10TA4 PO (03:24)
[2021-05-10] MEDS ORDERED: HOME MED LIST COMPLETE! XX SCH (03:25)
[2021-05-10] MEDS ORDERED: MAALOX 30 ML SUSP *UDC PO PRN (03:50)
[2021-05-10] MEDS ORDERED: MOM 30ML SUSPENSION UDC PO PRN (03:50)
--- NOTE | 2021-05-10 03:58 | HPEPDOC ---
[facility] Medical History & Physical Date of Admission May 10, 2021 Date of Service: May 10, 2021 Primary Care Physician: Bridget Soto MD Other Provider Dr. Boswell, neurology Attending Physician: NICOLE WYLIE MD History and Physical CHIEF COMPLAINT:shortness of breath HISTORY OF PRESENT ILLNESS: Mayra is a 41-year-old female with history of chronic musculoskeletal stiffness with neuropathy (follows with neurology with continued work-up as outpatient), acid reflux, and obesity who presented to the [facility] ED late on the evening of 05/09/2021 for the chief complaint of progressive shortness of breath with exertion. Patient's story dates back to 05/02 when she experienced headache, myalgias, and fever reminiscent to influenza and she subsequently was tested for the novel coronavirus and was positive. Of note, the patient was exposed to a coworker of her who was positive. Her son is also positive. The patient is unvaccinated. Patient had been feeling considerably better 2 days after testing positive as her fevers resolved and she was working from home. On Saturday, 05/05, her fevers returned and on Saturday (05/07) she developed a productive cough. She called her primary care physician (Dr. Bridget Soto) and set up a virtual appointment for 05/09 and was in the process of arranging outpatient monoclonal antibody treatment for 05/10. During the day on 05/09, patient was getting profoundly weak and dyspneic with minimal ambulation within her home and subsequently decided to come to the emergency department. She reports associated chills and intermittent nausea and sweats. She also reports a loss of smell. PAST MEDICAL/SURGICAL HISTORY: Unspecified chronic musculoskeletal symptoms (pain and stiffness) with chronic neuropathy; follows with neurology Obesity, BMI of 41; patient denies being diabetic or prediabetic, yet does take Metformin Acid reflux Hernia repair, 6 years old 2008 laparoscopic cholecystectomy 2019, benign left patella mass excision SOCIAL HISTORY: Patient is and lives with 2 children at home. She also has an adult 23-year-old child who does not currently live with her. 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 Patient is a former cigarette smoker with about a [id number] history, quit in 2006 Patient usually averages drinking 2 glasses of wine each weekend. Denies any heavy current or former alcohol use. Denies any illegal drug use. FAMILY HISTORY: Covid negative, son Covid positive ALLERGIES: Please see below. REVIEW OF SYSTEMS: CONSTITUTIONAL: Reports fever initially 05/02 that resolved, but returned on 05/05. Reports associated chills and sweats. HEENT: Denies tinnitus, blurry vision, double vision, or dysphagia or odynophagia CARDIOVASCULAR: Denies chest pain, chest pressure, or palpitations RESPIRATORY: Reports increased shortness of breath with exertion on 05/09; r eports productive cough. Denies pleuritic chest pain GASTROINTESTINAL: Reports intermittent nausea. Denies any abdominal pain, vomiting, blood in stool GENITOURINARY: Denies dysuria or hematuria MUSCULOSKELETAL: Reports muscle weakness and myalgias NEUROLOGICAL: Reports loss of sense of smell, as well as neuropathy denies dizziness, lightheadedness, gait instability/falls ENDOCRINE: Reports cold intolerance with chills HEMATOLOGIC: Denies recent easy bleeding or bruising LYMPHATIC: Denies any new lumps or bumps. HOME MEDICATIONS: Please see below. PHYSICAL EXAMINATION: VITAL SIGNS: 98.7, heart rate 91, respiratory rate 18, blood pressure 136/58, SPO2 85% on 2 L nasal cannula GENERAL APPEARANCE: obese female lying upright in bed. She appears to be quite fatigued. She is pale appearing. HEENT: Normocephalic, atraumatic. Facial pallor. Noninjected, anicteric sclera. No significant conjunctival pallor appreciated. Oral cavity: MMM. No pharyngeal erythema or exudate appreciated. Neck: No lymphadenopathy appreciated. Trachea midline. CARDIOVASCULAR: Borderline tachycardic rate, regular rhythm. Normal S1, S2. No significant murmurs or rubs appreciated. 2+ radial pulses bilaterally. LUNGS: Cough is elicited repeatedly during auscultatory exam. Decreased tidal volume with no significant crackles, wheezes, or rhonchi appreciated. Symmetric chest expansion. Wearing submental oxygen. No visualized accessory muscle use. ABDOMEN: Soft, obese. Nontender nondistended. Hypoactive bowel sounds throughout. No guarding or rigidity appreciated. Difficult to assess for hepatosplenomegaly or palpable masses due to habitus. EXTREMITIES: Bilateral lower extremities are free of pitting edema. Negative for calf tenderness. No signs of clubbing or cyanosis. NEUROLOGICAL: No gross focal neurologic deficits appreciated. PSYCHIATRIC: Mood affect appear appropriate LABORATORY DATA:Please see below. IMAGING: FINDINGS: Lungs: Patchy basilar airspace consolidation, worse on the left. Pleural spaces: No pleural effusion. No pneumothorax. Heart/Mediastinum: Unrema rkable. No cardiomegaly. Bones/joints: Unremarkable. IMPRESSION: Bilateral pneumonia. MICROBIOLOGY: COVID 19 + ASSESSMENT & PLAN: This is a 41-year-old female with history of chronic musculoskeletal and neuropathic issues being worked up by neurology currently, obesity, acid reflux, who presented to the [facility] ED on 05/09/2021 for the chief complaint of progressive dyspnea on exertion x1 day. Patient tested positive for novel coronavirus on 05/02 and had been managing symptoms with isolation at home. She was found to desaturate to 86% with ambulation and was admitted for continued monitoring of respiratory status as well as hypokalemia. #Progressive dyspnea on exertion likely secondary to bilateral Covid pneumonia -Patient tested positive for Covid on 05/02 and was isolating at home but de veloped increased dyspnea on exertion during the day on 05/09 with associated weakness, chills, and sweats -In the ED, patient desaturated to 86% with ambulation -Administered Combivent inhaler and 10 mg Decadron in the ED -Chest x-ray showed bilateral basilar patchy consolidations, left greater than right. -At time of admission, patient saturating at 95% on 2 L nasal cannula oxygen -Patient will be admitted to the Covid floor for continued monitoring of respiratory status and stability. -Oxygen titration orders greater than 92%; isolation precautions -Both remdesivir and dexamethasone were ordered; day team may consider adding baricitinib for triple therapy with remdesivir and dexamethasone (baricitinib will need either pulmonary or infectious disease prior authorization). -The monoclonal antibody administration patient was in the process of setting up will be deferred for the time being in the setting of her acute dermatology -40 mg subcutaneous Lovenox twice daily ordered -Encourage proning -Incentive spirometer and Mucinex ordered -Patient has 2 risk factors complicating her treatment for Covid pneumonia in the form of obesity and former tobacco use #Sepsis 2/2 COVID The patient had tachycardia, tachypnea and leukopenia #Hypokalemia -This may be secondary to decreased oral intake over the past week with the intermittent flulike symptoms that patient is experienced -Given both oral and IV replacement in the CX-[id number] metabolic panel ordered for the morning and magnesium level added to initial labs -Telemetry ordered #Obesity -BMI 41. This is complicates patient's care in general but also specifically with respect to Covid pneumonia as it is an independent risk factor -Patient reports taking Metformin as outpatient for weight loss, but denies know n history of diabetes or prediabetes #Unspecified chronic musculoskeletal symptoms/chronic neuropathy -Patient currently follows with Dr. Boswell of neurology as an outpatient. Per the patient, she has had chronic left-sided numbness, pain, stiffen musculature, and neuropathy. Work-up at this time has ruled out CVA and MS per the patient.- Home gabapentin continued -Patient reports that Dr. Boswell started the patient on aspirin as outpatient; 81 mg aspirin was continued upon admission #Allergies -Home cetirizine continued #DVT prophylaxis: Subcutaneous Lovenox twice a day dosing in the setting of Covid pneumonia ordered CODE STATUS: Full code Disposition: Pending improvement in ambulatory oxygenation and overall respiratory status in the setting of bilateral Covid pneumonia. Expect least 1- 2 midnight stays. Laboratory Data Labs 24H Laboratory Tests 2 05/09/21 23:50: Immature Granulocyte % (Auto) 0.6, Neutrophils (%) (Auto) 71.7H, Lymphocytes (%) (Auto) 22.8L, Monocytes (%) (Auto) 4.3, Eosinophils (%) (Auto) 0.3, Basophils (%) (Auto) 0.3, Neutrophils # (Auto) 2.5, Lymphocytes # (Auto) 0.8L, Monocytes # (Auto) 0.2, Eosinophils # (Auto) 0.0, Basophils # (Auto) 0.0, Nucleated Red Blood Cells % (auto) 0.0, D-Dimer, Quantitative 487.54, Anion Gap 7L, Glomerular Filtration Rate > 60.0, Calcium Level 8.4L, Magnesium Level 1.6L, Total Bilirubin 0.4, Direct Bilirubin 0.1, Aspartate Amino Transf (AST/SGOT) 35, Alanine Aminotransferase (ALT/SGPT) 39, Alkaline Phosphatase 70, Total Creatine Kinase 103, Creatine Kinase MB 1.1, Creatine Kinase MB Relative Index 1.07, Troponin I < 0.02, MN-Yem-V-Type Natriuretic Peptide 63, Total Protein 6.7, Albumin 3.2, Albumin/Globulin Ratio 0.9L, Thyroid Stimulating Hormone (TSH) 3.220 05/10/21 00:37: Coronavirus (COVID-19)(PCR) POSITIVEA, Influenza Type A (RT-PCR) NEGATIVE, Influenza Type B (RT-PCR) NEGATIVE, Respiratory Syncytial Virus (PCR) NEGATIVE CBC/BMP Laboratory Tests 05/09/21 23:50 Home Medications Scheduled Aspirin (Aspirin EC) 81 Mg Tablet.dr, 81 MG PO DAILY Cetirizine HCl (Cetirizine HCl) 10 Mg Tablet, 10 MG PO DAILY Cholecalciferol (Vitamin D3) (Vitamin D3) 125 Mcg Capsule, 125 MCG PO DAILY Cyanocobalamin (Cyanocobalamin Injection) 1,000 Mcg/1 Ml Vial, 1,000 MCG IM QWEEK Dexlansoprazole (Dexilant) 60 Mg Cap, 60 MG PO DAILY Ferrous Sulfate (Ferrous Sulfate) 325 Mg Tablet.dr, 325 MG PO QHS Gabapentin (Gabapentin) 300 Mg Capsule, 300 MG PO TID Guaifenesin/Dextromethorphan (Mucinex Dm ER 600-30 mg Tablet) 1 Each Tab.er.12h, 1 TAB PO BID L.acidoph/L.bulg/B.bif/S.therm (Bacid Caplet) 1 Each Tablet, 1 TAB PO DAILY Metformin HCl (Metformin HCl) 500 Mg Tablet, 500 MG PO BID Multivitamins (Thera M Plus Tablet) 1 Each Tablet, 1 TAB PO QHS Scheduled PRN Acetaminophen (Tylenol Extra Strength) 500 Mg Tablet, 1,000 MG PO Q6H PRN for FEVER Ibuprofen (Ibuprofen) 200 Mg Tablet, 400 MG PO Q6H PRN for FEVER Tizanidine HCl (Tizanidine HCl) 2 Mg Tablet, 2 MG PO TID PRN for MUSCLE SPASMS Allergies Coded Allergies: No Known Allergies (Unverified , 06/23/20) Attending Note Attending Note time of service 644am Ms. Michel is a 41 F admitted for Sepsis and PNA due to COVID 19. rest per 's [facility] D.O. May 10, 2021 03:58 NICOLE WYLIE MD May 10, 2021 07:09
[2021-05-10 04:00] LABS: INR 0.92; PROTHROMBIN TIME 12.8 SECONDS (12.7-14.5)
[2021-05-10 04:01] LABS: PARTIAL THROMBOPLASTIN TIME 45.4 SECONDS (25.9-37.0)
[2021-05-10 04:03] LABS: FERRITIN 88 NG/ML (8-252); LDH LACTATE DEHYDROGENASE 265 U/L (84-246)
[2021-05-10] MEDS ORDERED: REMDESIVIR 200 MG in NS 250 ML IV ONE (06:00)
[2021-05-10 07:02] LABS: HEMATOCRIT 36.2 % (36.0-47.0); HEMOGLOBIN 11.9 g/dl (12.0-15.5); LYMPH # 0.4 10^3/uL (1.5-5.0); LYMPH % 12.9 % (24.0-44.0); MEAN CORPUSCULAR HEMOGLOBIN 26.6 pg (27.0-33.0); MEAN CORPUSCULAR HGB CONC 32.9 g/dl (32.0-36.5); MEAN CORPUSCULAR VOLUME 80.8 fl (80.0-96.0); MONO # 0.1 10^3/uL (0.0-0.8); MONO % 2.7 % (2.0-8.0); NEUTROPHILS # 2.5 10^3/uL (1.5-8.5); NEUTROPHILS % 83.4 % (36.0-66.0); PLATELET COUNT, AUTOMATED 143 10^3/uL (150-450); RED BLOOD COUNT 4.48 10^6/uL (4.00-5.40); WHITE BLOOD COUNT 2.9 10^3/uL (4.0-10.0)
[2021-05-10 07:46] LABS: ALBUMIN 3.1 GM/DL (3.2-5.2); ALT/SGPT 41 U/L (12-78); BILIRUBIN,TOTAL 0.3 MG/DL (0.2-1.0); BLOOD UREA NITROGEN 7 MG/DL (7-18); CALCIUM LEVEL 8.5 MG/DL (8.5-10.1); CARBON DIOXIDE LEVEL 27 MEQ/L (21-32); CHLORIDE LEVEL 110 MEQ/L (98-107); CREATININE FOR GFR 0.51 MG/DL (0.55-1.30); GLOMERULAR FILTRATION RATE > 60.0 (>58); GLUCOSE, FASTING 136 MG/DL (70-100); MAGNESIUM LEVEL 1.9 MG/DL (1.8-2.4); POTASSIUM SERUM 3.7 MEQ/L (3.5-5.1); SODIUM LEVEL 143 MEQ/L (136-145); TOTAL PROTEIN 6.8 GM/DL (6.4-8.2)
[2021-05-10] MEDS ORDERED: SODIUM CHLORIDE 0.9% INJ 10 ML SYR IV ONE (08:00)
[2021-05-10] MEDS: GABAPENTIN 300 MG CAP PO SCH ×3 (09:00→20:40)
[2021-05-10] MEDS: guaiFENesin ER 600 MG TAB PO SCH ×2 (09:00→20:40)
[2021-05-10] MEDS: CETIRIZINE (ZyrTEC) 10 MG TAB PO SCH (09:00)
[2021-05-10] MEDS: PANTOPRAZOLE 20 MG TAB PO SCH (09:00)
[2021-05-10] MEDS ORDERED: ENOXAPARIN 40MG/0.4ML SYRINGE (J1650 PER 10MG) SC SCH (09:00)
[2021-05-10] MEDS: LACTOBACILLUS ACIDOPHILUS CAP (BACID) PO SCH (09:00)
[2021-05-10] MEDS: ASPIRIN 81MG ENTERIC TABLET PO SCH (09:00)
[2021-05-10 15:10] VITALS: BP 144/66
[2021-05-10] MEDS: ACETAMINOPHEN TAB 650MG DOSE (2X325MG) PO PRN ×2 (15:33→20:40)
--- NOTE | 2021-05-10 15:41 | IPNPDOC ---
Text Note Date of Service The patient was seen on 05/10/21. NOTE Subjective: Patient continues to complain of intermittent cough and subjective fever. She also complains of shortness of breath on exertion Objective: GENERAL APPEARANCE: NAD, morbidly obese female HEENT: no scleral icterus, no JVD, EOMI CARDIOVASCULAR: S1S2 LUNGS: Diminished lung sounds bilaterally ABDOMEN: soft & not tender w palpation MUSCULOSKELETAL: no cyanosis, no swelling INTEGUMENT: no generalized pallor NEUROLOGICAL: cranial nerve function from 2-12 intact, follows commands, speech not dysarthric Assessment and plan Patient is 41 years old female with past medical history of chronic musculoskeletal and neuropathic issues being worked up by neurology currently, obesity, acid reflux was admitted with Covid pneumonia. Covid pneumonia/acute hypoxemic respiratory failure Patient's oxygen requirements increased to 4 L, she desaturated on room air to 86% Labs according to Covid protocol Inhalers Dexamethasone, remdesivir We will discuss baricitinib with pulmonology team Morbid obesity BMI 41.2 Complicated care Hypokalemia resolved Unspecified chronic musculoskeletal symptoms/chronic neuropathy Patient currently follows with Dr. Boswell of neurology as an outpatient DVT prophylaxis with VS,Fishbone, I+O VS, Fishbone, I+O Laboratory Tests 05/09/21 23:50 05/10/21 06:34 Vital Signs Date Time Temp Pulse Resp B/P (MAP) Pulse Ox O2 Delivery O2 Flow Rate FiO2 05/10/21 15:10 99.6 96 26 144/66 (92) 90 Nasal Cannula 4.0 I&O- Last 24 Hours up to 6 AM 05/10/21 06:00 Intake Total 100 ml Balance 100 ml SY BOND DO May 10, 2021 15:41
--- NOTE | 2021-05-10 17:51 | ECGEPIP ---
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
[2021-05-10] MEDS: BARICITINIB 2MG TABLET (OLUMIANT) FOR EUA PO SCH (18:40)
[2021-05-10 20:00] VITALS: O2SAT 94
[2021-05-10] MEDS: MULTIVITAMINS/MINERALS THERAP 1 TAB PO SCH (20:40)
[2021-05-10 22:00] VITALS: BP 130/80
[2021-05-10] MEDS: tiZANidine 4 MG TAB PO PRN (22:54)
[2021-05-11] VITALS (9 sets, daily range): BP systolic 113–148; BP diastolic 76–88; O2SAT 94–97
[2021-05-11] MEDS: REMDESIVIR 100 MG in NS 250 ML IV SCH (05:54)
[2021-05-11] MEDS: ACETAMINOPHEN TAB 650MG DOSE (2X325MG) PO PRN ×3 (05:55→22:31)
[2021-05-11] MEDS: SODIUM CHLORIDE 0.9% INJ 10 ML SYR IV SCH (07:00)
[2021-05-11 08:53] LABS: HEMATOCRIT 34.2 % (36.0-47.0); HEMOGLOBIN 11.1 g/dl (12.0-15.5); LYMPH % 18.2 % (24.0-44.0); MEAN CORPUSCULAR HEMOGLOBIN 26.4 pg (27.0-33.0); MEAN CORPUSCULAR HGB CONC 32.5 g/dl (32.0-36.5); MEAN CORPUSCULAR VOLUME 81.2 fl (80.0-96.0); MONO # 0.4 10^3/uL (0.0-0.8); MONO % 7.1 % (2.0-8.0); NEUTROPHILS % 74.3 % (36.0-66.0); PLATELET COUNT, AUTOMATED 190 10^3/uL (150-450); RED BLOOD COUNT 4.21 10^6/uL (4.00-5.40); WHITE BLOOD COUNT 5.4 10^3/uL (4.0-10.0)
[2021-05-11 09:09] LABS: ALBUMIN 2.6 GM/DL (3.2-5.2); ALT/SGPT 32 U/L (12-78); BILIRUBIN,TOTAL 0.2 MG/DL (0.2-1.0); BLOOD UREA NITROGEN 9 MG/DL (7-18); CALCIUM LEVEL 8.7 MG/DL (8.5-10.1); CARBON DIOXIDE LEVEL 29 MEQ/L (21-32); CHLORIDE LEVEL 106 MEQ/L (98-107); CREATININE FOR GFR 0.49 MG/DL (0.55-1.30); GLOMERULAR FILTRATION RATE > 60.0 (>58); GLUCOSE, FASTING 107 MG/DL (70-100); POTASSIUM SERUM 3.2 MEQ/L (3.5-5.1); SODIUM LEVEL 139 MEQ/L (136-145); TOTAL PROTEIN 6.7 GM/DL (6.4-8.2)
[2021-05-11] MEDS: ASPIRIN 81MG ENTERIC TABLET PO SCH (10:00)
[2021-05-11] MEDS: ENOXAPARIN 40MG/0.4ML SYRINGE (J1650 PER 10MG) SC SCH (10:00)
[2021-05-11] MEDS: CETIRIZINE (ZyrTEC) 10 MG TAB PO SCH (10:00)
[2021-05-11] MEDS: GABAPENTIN 300 MG CAP PO SCH ×3 (10:00→22:06)
[2021-05-11] MEDS: dexameTHASONE 4 MG/ML 1ML VIAL (J1100 PER 1MG) IV SCH (10:00)
[2021-05-11] MEDS: PANTOPRAZOLE 20 MG TAB PO SCH (10:01)
[2021-05-11] MEDS: LACTOBACILLUS ACIDOPHILUS CAP (BACID) PO SCH (10:01)
[2021-05-11] MEDS: guaiFENesin ER 600 MG TAB PO SCH ×2 (10:01→22:06)
[2021-05-11] MEDS: BARICITINIB 2MG TABLET (OLUMIANT) FOR EUA PO SCH (10:01)
--- NOTE | 2021-05-11 14:12 | IPNPDOC ---
Text Note Date of Service The patient was seen on 05/11/21. NOTE Subjective: Patient continues to complain of intermittent cough and SoB. She also complains of shortness of breath on exertion Objective: GENERAL APPEARANCE: NAD, morbidly obese female HEENT: no scleral icterus, no JVD, EOMI CARDIOVASCULAR: S1S2 LUNGS: Diminished lung sounds bilaterally ABDOMEN: soft & not tender w palpation MUSCULOSKELETAL: no cyanosis, no swelling INTEGUMENT: no generalized pallor NEUROLOGICAL: cranial nerve function from 2-12 intact, follows commands, speech not dysarthric Assessment and plan Patient is 41 years old female with past medical history of chronic musculoskeletal and neuropathic issues being worked up by neurology currently, obesity, acid reflux was admitted with Covid pneumonia. Covid pneumonia/acute hypoxemic respiratory failure Patient's oxygen requirements increased to 5L today Labs according to Covid protocol Inhalers Dexamethasone, remdesivir, baricitinib Morbid obesity BMI 41.2 Complicated care Hypokalemia replaced Unspecified chronic musculoskeletal symptoms/chronic neuropathy Patient currently follows with Dr. Boswell of neurology as an outpatient DVT prophylaxis with VS,Fishbone, I+O VS, Fishbone, I+O Laboratory Tests 05/11/21 08:02 Vital Signs Date Time Temp Pulse Resp B/P (MAP) Pulse Ox O2 Delivery O2 Flow Rate FiO2 05/11/21 06:00 98.1 86 20 113/76 (88) 96 Nasal Cannula 5.0 I&O- Last 24 Hours up to 6 AM 05/11/21 06:00 Intake Total 630 ml Output Total 150 ml Balance 480 ml SY BOND DO May 11, 2021 14:12
[2021-05-11] MEDS ORDERED: POTASSIUM CHLORIDE 10MEQ SR TABLET PO ONE (14:15)
[2021-05-11] MEDS: MULTIVITAMINS/MINERALS THERAP 1 TAB PO SCH (22:06)
[2021-05-11] MEDS: tiZANidine 4 MG TAB PO PRN (22:07)
[2021-05-12] VITALS: O2SAT 95
[2021-05-12] MEDS: REMDESIVIR 100 MG in NS 250 ML IV SCH (06:27)
[2021-05-12] MEDS: SODIUM CHLORIDE 0.9% INJ 10 ML SYR IV SCH (06:27)
[2021-05-12] MEDS: BENZONATATE 100MG CAPSULE PO PRN ×2 (06:27→16:36)
[2021-05-12 08:00] VITALS: O2SAT 96
[2021-05-12] MEDS: ASPIRIN 81MG ENTERIC TABLET PO SCH (08:33)
[2021-05-12] MEDS: dexameTHASONE 4 MG/ML 1ML VIAL (J1100 PER 1MG) IV SCH (08:33)
[2021-05-12] MEDS: CETIRIZINE (ZyrTEC) 10 MG TAB PO SCH (08:33)
[2021-05-12] MEDS: BARICITINIB 2MG TABLET (OLUMIANT) FOR EUA PO SCH (08:34)
[2021-05-12] MEDS: guaiFENesin ER 600 MG TAB PO SCH (08:34)
[2021-05-12] MEDS: PANTOPRAZOLE 20 MG TAB PO SCH (08:34)
[2021-05-12] MEDS: ACETAMINOPHEN TAB 650MG DOSE (2X325MG) PO PRN (08:34)
[2021-05-12] MEDS: GABAPENTIN 300 MG CAP PO SCH ×2 (08:34→16:27)
[2021-05-12] MEDS: LACTOBACILLUS ACIDOPHILUS CAP (BACID) PO SCH (08:35)
[2021-05-12] MEDS: ENOXAPARIN 40MG/0.4ML SYRINGE (J1650 PER 10MG) SC SCH (08:36)
[2021-05-12 08:39] LABS: BASO % 0.3 % (0.0-1.0); HEMATOCRIT 36.7 % (36.0-47.0); HEMOGLOBIN 11.7 g/dl (12.0-15.5); LYMPH # 0.9 10^3/uL (1.5-5.0); LYMPH % 23.1 % (24.0-44.0); MEAN CORPUSCULAR HEMOGLOBIN 26.4 pg (27.0-33.0); MEAN CORPUSCULAR HGB CONC 31.9 g/dl (32.0-36.5); MEAN CORPUSCULAR VOLUME 82.8 fl (80.0-96.0); MONO # 0.4 10^3/uL (0.0-0.8); MONO % 9.1 % (2.0-8.0); NEUTROPHILS # 2.5 10^3/uL (1.5-8.5); NEUTROPHILS % 63.6 % (36.0-66.0); PLATELET COUNT, AUTOMATED 223 10^3/uL (150-450); RED BLOOD COUNT 4.43 10^6/uL (4.00-5.40); WHITE BLOOD COUNT 3.9 10^3/uL (4.0-10.0)
[2021-05-12 09:12] LABS: ALBUMIN 2.7 GM/DL (3.2-5.2); ALT/SGPT 27 U/L (12-78); BILIRUBIN,TOTAL 0.2 MG/DL (0.2-1.0); BLOOD UREA NITROGEN 11 MG/DL (7-18); CALCIUM LEVEL 8.7 MG/DL (8.5-10.1); CARBON DIOXIDE LEVEL 28 MEQ/L (21-32); CHLORIDE LEVEL 107 MEQ/L (98-107); CPK CREATINE PHOSPHOKINASE 83 U/L (26-192); CREATININE FOR GFR 0.54 MG/DL (0.55-1.30); FERRITIN 67 NG/ML (8-252); GLOMERULAR FILTRATION RATE > 60.0 (>58); GLUCOSE, FASTING 128 MG/DL (70-100); LDH LACTATE DEHYDROGENASE 249 U/L (84-246); NT-PRO BNP 352 PG/ML (<125); POTASSIUM SERUM 3.3 MEQ/L (3.5-5.1); SODIUM LEVEL 141 MEQ/L (136-145); TOTAL PROTEIN 6.9 GM/DL (6.4-8.2); TROPONIN I < 0.02 NG/ML (< 0.10)
[2021-05-12 09:18] LABS: INR 1.01; PARTIAL THROMBOPLASTIN TIME 28.6 SECONDS (25.9-37.0); PROTHROMBIN TIME 13.7 SECONDS (12.7-14.5)
[2021-05-12] MEDS ORDERED: PROAAER10 INH (11:22)
[2021-05-12] MEDS ORDERED: PRED10PA2 PO (11:22)
[2021-05-12] MEDS ORDERED: POTASSIUM CHLORIDE 10MEQ SR TABLET PO ONE (11:30)
[2021-05-12 12:00] VITALS: O2SAT 95
[2021-05-12 14:00] VITALS: BP 149/97
[2021-05-12 16:00] VITALS: O2SAT 95
[2021-05-12] MEDS ORDERED: [UNRECOGNIZED DRUG - CODE] PO (16:30)
[2021-05-12] MEDS ORDERED: TESS100C PO (16:30)
--- NOTE | 2021-05-12 17:12 | DS.PDOC ---
Discharge Summary General Date of Admission May 10, 2021 at 02:27 Date of Discharge 05/12/21 Discharge Summary PROCEDURES PERFORMED DURING STAY: [None]. ADMITTING DIAGNOSES: Covid pneumonia/acute hypoxemic respiratory failure Morbid obesity Hypokalemia Unspecified chronic musculoskeletal symptoms/chronic neuropathy DISCHARGE DIAGNOSES: Covid pneumonia/acute hypoxemic respiratory failure Morbid obesity Hypokalemia Unspecified chronic musculoskeletal symptoms/chronic neuropathy COMPLICATIONS/CHIEF COMPLAINT: Covid-19/ Hypokalemia/ Sepsis. HISTORY OF PRESENT ILLNESS:Mayra is a 41-year-old female with history of chronic musculoskeletal stiffness with neuropathy (follows with neurology with continued work-up as outpatient), acid reflux, and obesity who presented to the [facility] ED late on the evening of 05/09/2021 for the chief complaint of progressive shortness of breath with exertion. Patient's story dates back to 05/02 when she experienced headache, myalgias, and fever reminiscent to influenza and she subsequently was tested for the novel coronavirus and was positive. Of note, the patient was exposed to a coworker of her who was positive. Her son is also positive. The patient is unvaccinated. Patient had been feeling co nsiderably better 2 days after testing positive as her fevers resolved and she was working from home. On Saturday, 05/05, her fevers returned and on Saturday (05/07) she developed a productive cough. She called her primary care physician (Dr. Bridget Soto) and set up a virtual appointment for 05/09 and was in the process of arranging outpatient monoclonal antibody treatment for 05/10. During the day on 05/09, patient was getting profoundly weak and dyspneic with minimal ambulation within her home and subsequently decided to come to the emergency department. She reports associated chills and intermittent nausea and sweats. She also reports a loss of smell. HOSPITAL COURSE: During the hospital stay the patient received Dexamethasone, remdesivir, baricitinib with positive dynamic. Her oxygen requirements improved and she is on 3 L today. Patient will be discharged home with portable oxygen and prednisone taper with her Robitussin DISCHARGE MEDICATIONS: Please see below. ALLERGIES: Please see below. PHYSICAL EXAMINATION ON DISCHARGE: VITAL SIGNS: Please see below. GENERAL APPEARANCE: Morbidly obese female HEENT: no scleral icterus, no JVD, EOMI CARDIOVASCULAR: S1S2 LUNGS: Diminished lung sounds bilaterally ABDOMEN: soft & not tender w palpation MUSCULOSKELETAL: no cyanosis, no swelling INTEGUMENT: no generalized pallor NEUROLOGICAL: cranial nerve function from 2-12 intact, follows commands, speech not dysarthric LABORATORY DATA: Please see below. PROGNOSIS: Fair ACTIVITY: [As tolerated]. DIET: Cardiac DISPOSITION: Home ITEMS TO FOLLOWUP ON ON OUTPATIENT: Follow-up with PCP DISCHARGE CONDITION: [Stable]. TIME SPENT ON DISCHARGE: 40 minutes. Vital Signs/I&Os Vital Signs Date Time Temp Pulse Resp B/P (MAP) Pulse Ox O2 Delivery O2 Flow Rate FiO2 05/12/21 16:00 95 Nasal Cannula 3.0 05/12/21 14:00 98.5 86 18 149/97 (114) I&O- Last 24 Hours up to 6 AM 05/12/21 06:00 Intake Total 1160 ml Balance 1160 ml Laboratory Data Labs 24H Laboratory Tests 2 05/12/21 08:08: Immature Granulocyte % (Auto) 3.9H, Neutrophils (%) (Auto) 63.6, Lymphocytes (%) (Auto) 23.1L, Monocytes (%) (Auto) 9.1H, Eosinophils (%) (Auto) 0.0, Basophils (%) (Auto) 0.3, Neutrophils # (Auto) 2.5, Lymphocytes # (Auto) 0.9L, Monocytes # (Auto) 0.4, Eosinophils # (Auto) 0.0, Basophils # (Auto) 0.0, Nucleated Red Blood Cells % (auto) 0.0, Prothrombin Time 13.7, Prothromb Time International Ratio 1.01, Activated Partial Thromboplast Time 28.6, Fibrinogen 511H, Anion Gap 6L, Glomerular Filtration Rate > 60.0, Calcium Level 8.7, Magnesium Level 2.0, Ferritin 67, Total Bilirubin 0.2, Aspartate Amino Transf (AST/SGOT) 15, Alanine Aminotransferase (ALT/SGPT) 27, Alkaline Phosphatase 55, Lactate Dehydrogenase 249H, Total Creatine Kinase 83, Troponin I < 0.02, KK-[id number]-G-Type Natriuretic Peptide 352H, Total Protein 6.9, Albumin 2.7L, Albumin/Globulin Ratio 0.6L, Procalcitonin <0.05 CBC/BMP Laboratory Tests 05/12/21 08:08 Discharge Medications Scheduled Aspirin (Aspirin EC) 81 Mg Tablet.dr, 81 MG PO DAILY, (Reported) Benzonatate (Tessalon Perle) 100 Mg Capsule, 100 MG PO TID for cough Cetirizine HCl (Cetirizine HCl) 10 Mg Tablet, 10 MG PO DAILY, (Reported) Cholecalciferol (Vitamin D3) (Vitamin D3) 125 Mcg Capsule, 125 MCG PO DAILY, (Reported) Cyanocobalamin (Cyanocobalamin Injection) 1,000 Mcg/1 Ml Vial, 1,000 MCG IM QWEEK, (Reported) Dexlansoprazole (Dexilant) 60 Mg Cap, 60 MG PO DAILY, (Reported) Ferrous Sulfate (Ferrous Sulfate) 325 Mg Tablet.dr, 325 MG PO QHS, (Reported) Gabapentin (Gabapentin) 300 Mg Capsule, 300 MG PO TID, (Reported) Guaifenesin/Dextromethorphan (Mucinex Dm ER 600-30 mg Tablet) 1 Each Tab.er.12h, 1 TAB PO BID, (Reported) Guaifenesin/Dextromethorphan (Robafen Dm Cough Liquid) 118 Ml Liquid, 1 LIQ PO TID for COUGH L.acidoph/L.bulg/B.bif/S.therm (Bacid Caplet) 1 Each Tablet, 1 TAB PO DAILY, (Reported) Metformin HCl (Metformin HCl) 500 Mg Tablet, 500 MG PO BID, (Reported) Multivitamins (Thera M Plus Tablet) 1 Each Tablet, 1 TAB PO QHS, (Reported) Prednisone (Prednisone) 10 Mg Tab.ds.pk, 1 TAB PO DAILY Scheduled PRN Acetaminophen (Tylenol Extra Strength) 500 Mg Tablet, 1,000 MG PO Q6H PRN for FEVER, (Reported) Albuterol Sulfate (Proair Hfa) 8.5 Gm Hfa.aer.ad, 2 PUFF INH Q4-6HP PRN for wheezing Ibuprofen (Ibuprofen) 200 Mg Tablet, 400 MG PO Q6H PRN for FEVER, (Reported) Tizanidine HCl (Tizanidine HCl) 2 Mg Tablet, 2 MG PO TID PRN for MUSCLE SPASMS, (Reported) Allergies Coded Allergies: No Known Allergies (Unverified , 06/23/20) SY BOND DO May 12, 2021 17:12
== END 2021-05-12 17:00 | disposition home or self-care (01) | DRG 177 ==
LOC: M ED 22:15 → M ED INP 05-10 02:27 → ENRESERV 05-10 13:45 → M 4MAIN 05-10 14:45
PROVIDERS: ADMIT Internal Medicine; ATTEND Internal Medicine
PROC: XW033E5 Introduction of Remdesivir Anti-infective into Peripheral Vein, Percutaneous Approach, New Technology Group 5 (ICD-10-PCS; principal; 2021-05-10)
PROC: 3E0333Z Introduction of Anti-inflammatory into Peripheral Vein, Percutaneous Approach (ICD-10-PCS; 2021-05-10)
DX: U07.1 COVID-19 (principal); J12.82 Pneumonia due to coronavirus disease 2019; J96.01 Acute respiratory failure with hypoxia; Z68.41 Body mass index [BMI] 40.0-44.9, adult; G62.9 Polyneuropathy, unspecified; M79.9 Soft tissue disorder, unspecified; E66.01 Morbid (severe) obesity due to excess calories; K21.9 Gastro-esophageal reflux disease without esophagitis; Z90.49 Acquired absence of other specified parts of digestive tract; Z87.891 Personal history of nicotine dependence; E87.6 Hypokalemia; Z79.82 Long term (current) use of aspirin; Z79.84 Long term (current) use of oral hypoglycemic drugs; Z79.899 Other long term (current) drug therapy

== ENCOUNTER 2021-07-10 15:56 | Outpatient (CLI) | payer OTHER ==
[~2021-07-10 15:56] MED LIST changes: +ACET-897 PO; +ASPI-161 PO; +BACITAB PO; +CETI10TA4 PO; +CYAN1000VL IM; +D-50CAP PO; +FERR325T3 PO; +GABA-282; +GABA-282 PO; +IBUP-1720 PO; +MUCI30TA5 PO; +PRED10PA2 PO; +PROAAER10 INH; +TESS100C PO; +TIZA1TAB12 PO; +TIZA2TA; +VITMTA PO; +[UNRECOGNIZED DRUG - CODE] PO
[2021-07-10] MEDS ORDERED: [UNRECOGNIZED DRUG - OTHER] IV ONE ×2 (16:00)
[2021-07-10 16:05] VITALS: BP 138/78
[2021-07-10] MEDS ORDERED: GABA-283 PO (16:12)
[2021-07-10] MEDS ORDERED: TIZA4CAP PO (16:14)
[2021-07-10 17:25] VITALS: BP 132/70
== END 2021-07-10 17:25 | disposition home or self-care (01) ==
LOC: M INFU 15:56
PROVIDERS: ATTEND Psychiatry & Neurology Neurology
DX: G35 Multiple sclerosis (principal)
CPT/HCPCS: 96365; J2930

== ENCOUNTER 2021-07-11 15:49 | Outpatient (CLI) | payer OTHER ==
[~2021-07-11] VITALS: Ht 162.6 cm; Wt 104.2 kg
[~2021-07-11 15:49] MED LIST changes: +GABA-283 PO; +TIZA4CAP PO
[2021-07-11] MEDS ORDERED: methylPREDNISolone 1,000 MG, VIAL MATE ADAPTER 1 EACH in NS 250 ML IV ONE (16:00)
[2021-07-11 16:14] VITALS: BP 185/91
[2021-07-11 17:24] VITALS: BP 138/72
== END 2021-07-11 17:20 | disposition home or self-care (01) ==
LOC: M INFU 15:49
PROVIDERS: ATTEND Psychiatry & Neurology Neurology
DX: G35 Multiple sclerosis (principal)
CPT/HCPCS: 96365; J2930

== ENCOUNTER 2021-07-12 15:28 | Outpatient (CLI) | payer OTHER ==
[~2021-07-12] VITALS: Ht 162.6 cm; Wt 109.1 kg
[2021-07-12 15:37] VITALS: BP 149/67
[2021-07-12] MEDS ORDERED: methylPREDNISolone 1,000 MG, VIAL MATE ADAPTER 1 EACH in NS 250 ML IV ONE (16:00)
[2021-07-12 16:51] VITALS: BP 130/77
== END 2021-07-12 16:55 | disposition home or self-care (01) ==
LOC: M INFU 15:28
PROVIDERS: ATTEND Psychiatry & Neurology Neurology
DX: G35 Multiple sclerosis (principal)
CPT/HCPCS: 96365; J2930

== ENCOUNTER → 2021-07-13 | Outpatient (CLI) | payer OTHER ==
[~2021-07-13] VITALS: Ht 162.6 cm; Wt 109.1 kg
[~2021-07-13] MED LIST changes: +methylPREDNISolone 1,000 MG, VIAL MATE ADAPTER 1 EACH in NS 250 ML IV ONE
[2021-07-13 15:35] VITALS: BP 170/80
[2021-07-13 16:58] VITALS: BP 138/88
== END ==
LOC: M INFU 15:28
PROVIDERS: ATTEND Psychiatry & Neurology Neurology
DX: G35 Multiple sclerosis (principal)
CPT/HCPCS: 96365; J2930

== ENCOUNTER 2021-07-14 15:34 | Outpatient (CLI) | payer OTHER ==
[~2021-07-14] VITALS: Ht 162.6 cm; Wt 109.4 kg
[~2021-07-14 15:34] MED LIST changes: -methylPREDNISolone 1,000 MG, VIAL MATE ADAPTER 1 EACH in NS 250 ML IV ONE
[2021-07-14 15:40] VITALS: BP 140/80
[2021-07-14] MEDS ORDERED: methylPREDNISolone 1,000 MG, VIAL MATE ADAPTER 1 EACH in NS 250 ML IV ONE (16:00)
[2021-07-14 17:00] VITALS: BP 141/92
== END 2021-07-14 17:00 | disposition home or self-care (01) ==
LOC: M INFU 15:34
PROVIDERS: ATTEND Psychiatry & Neurology Neurology
DX: G35 Multiple sclerosis (principal)
CPT/HCPCS: 96365; J2930

== ENCOUNTER → 2021-10-27 | Outpatient (CLI) | payer OTHER ==
[2021-10-27 10:35] LABS: FREE T4 0.98 NG/DL (0.76-1.46); FREE THYROXINE INDEX 3.3 % (1.3-4.8); T UPTAKE 34 % (30-39); THYROXINE (T4) 9.8 UG/DL (4.5-12.0)
[2021-10-27 11:31] LABS: FOLATE > 24.0 NG/ML; VITAMIN B12 LEVEL 283 PG/ML
== END ==
LOC: M WUC 08:27
PROVIDERS: ATTEND Psychiatry & Neurology Neurology
DX: G24.9 Dystonia, unspecified (principal); M54.2 Cervicalgia; G89.29 Other chronic pain

== ENCOUNTER 2021-12-20 18:46 | Emergency (ER) | payer OTHER ==
[~2021-12-20] VITALS: Ht 162.6 cm; Wt 107.0 kg
[2021-12-20 18:48] VITALS: BP 178/101
== END 2021-12-20 22:56 | disposition left against medical advice (07) ==
LOC: M ED 18:46
DX: Z53.21 Procedure and treatment not carried out due to patient leaving prior to being seen by health care provider (principal)

== ENCOUNTER → 2022-05-01 | Outpatient (REF) | payer OTHER ==
[2022-05-01 15:56] LABS: GC DNA AMPLIFICATION NEGATIVE (NEGATIVE)
== END ==
LOC: M SFHCWAGY 12:58
PROVIDERS: ATTEND Advanced Practice Midwife
DX: Z11.3 Encounter for screening for infections with a predominantly sexual mode of transmission (principal); Z12.4 Encounter for screening for malignant neoplasm of cervix

== ENCOUNTER → 2022-11-21 | Outpatient (CLI) | payer OTHER | LOC: M LAB 14:50 | PROVIDERS: ATTEND Psychiatry & Neurology Neurology | DX: E80.29 Other porphyria (principal) ==

== ENCOUNTER → 2024-01-17 | Outpatient (CLI) | payer OTHER ==
[~2024-01-17] MED LIST changes: -ASPI-161 PO; +ASPI-615 PO; -GABA-283 PO; +GABA-284 PO
[2024-01-17 12:39] LABS: ALBUMIN 3.8 G/DL (3.2-5.2); ALKALINE PHOSPHATASE 49 U/L (46-116); ALT/SGPT 16 U/L (7.0-40); AST/SGOT < 8 U/L (<34); BILIRUBIN,TOTAL 0.5 MG/DL (0.3-1.2); BLOOD UREA NITROGEN 13 MG/DL (9-23); CARBON DIOXIDE LEVEL 28 MMOL/L (20-31); CHLORIDE LEVEL 107 MMOL/L (98-107); CHOLESTEROL LEVEL 155 MG/DL (<200); CHOLESTEROL RISK RATIO 3.08 (<5); CREATININE FOR GFR 0.63 MG/DL (0.55-1.30); GLOMERULAR FILTRATION RATE > 60.0 (>58); GLUCOSE, FASTING 85 MG/DL (60-100); HDL CHOLESTEROL 50.2 MG/DL (>40); LDL CHOLESTEROL 75.2 MG/DL (<100); NON-HDL-C 104.8 MG/DL; POTASSIUM SERUM 3.4 MMOL/L (3.5-5.1); SODIUM LEVEL 141 MMOL/L (136-145); TOTAL PROTEIN 6.3 G/DL (5.7-8.2); TRIGLYCERIDES LEVEL 148 MG/DL (<150)
[2024-01-17 12:46] LABS: AMPHETAMINES URINE REFLEX NEGATIVE (NEGATIVE); BARBITURATES URINE REFLEX NEGATIVE (NEGATIVE); BENZODIAZEPINES URINE REFLEX NEGATIVE (NEGATIVE); COCAINE METABOLITE URINE REFLE NEGATIVE (NEGATIVE); METHADONE URINE REFLEX NEGATIVE (NEGATIVE); OPIATES URINE REFLEX NEGATIVE (NEGATIVE); PHENCYCLIDINE URINE REFLEX NEGATIVE (NEGATIVE)
[2024-01-17 12:47] LABS: CANNABINOIDS URINE REFLEX NEGATIVE (NEGATIVE)
== END ==
LOC: M WUC 08:49
PROVIDERS: ATTEND Nurse Practitioner Family
DX: Z02.1 Encounter for pre-employment examination (principal)

== ENCOUNTER → 2024-02-11 | Outpatient (CLI) | payer OTHER ==
[2024-02-11 18:24] LABS: BASO % 0.7 % (0.0-1.0); EOS # 0.1 10^3/uL (0.0-0.5); HEMATOCRIT 35.7 % (36.0-47.0); HEMOGLOBIN 10.9 g/dl (12.0-15.5); LYMPH # 1.5 10^3/uL (1.5-5.0); LYMPH % 24.8 % (24.0-44.0); MEAN CORPUSCULAR HEMOGLOBIN 24.3 pg (27.0-33.0); MEAN CORPUSCULAR HGB CONC 30.5 g/dl (32.0-36.5); MEAN CORPUSCULAR VOLUME 79.5 fl (80.0-96.0); MONO # 0.6 10^3/uL (0.0-0.8); NEUTROPHILS # 3.9 10^3/uL (1.5-8.5); NEUTROPHILS % 64.2 % (36.0-66.0); PLATELET COUNT, AUTOMATED 269 10^3/uL (150-450); RED BLOOD COUNT 4.49 10^6/uL (4.00-5.40); WHITE BLOOD COUNT 6.1 10^3/uL (4.0-10.0)
[2024-02-11 18:46] LABS: ALBUMIN 3.8 G/DL (3.2-5.2); ALKALINE PHOSPHATASE 61 U/L (46-116); ALT/SGPT 16 U/L (7.0-40); AST/SGOT < 8 U/L (<34); BILIRUBIN,TOTAL 0.5 MG/DL (0.3-1.2); BLOOD UREA NITROGEN 7 MG/DL (9-23); CALCIUM LEVEL 9.2 MG/DL (8.5-10.1); CARBON DIOXIDE LEVEL 25 MMOL/L (20-31); CHLORIDE LEVEL 106 MMOL/L (98-107); CREATININE FOR GFR 0.63 MG/DL (0.55-1.30); GLOMERULAR FILTRATION RATE > 60.0 (>58); GLUCOSE, FASTING 89 MG/DL (60-100); POTASSIUM SERUM 3.4 MMOL/L (3.5-5.1); SODIUM LEVEL 139 MMOL/L (136-145); TOTAL PROTEIN 6.4 G/DL (5.7-8.2)
== END ==
LOC: M PLALAB 14:56
PROVIDERS: ATTEND Nurse Practitioner Family
DX: R19.7 Diarrhea, unspecified (principal)

== ENCOUNTER → 2024-02-12 | Outpatient (REF) | payer OTHER | LOC: M LAB REF 11:21 | PROVIDERS: ATTEND Nurse Practitioner Family | DX: R19.7 Diarrhea, unspecified (principal) ==

== ENCOUNTER → 2024-02-25 | Outpatient (CLI) | payer OTHER | LOC: M WHC 09:25 | PROVIDERS: ATTEND Advanced Practice Midwife | DX: Z12.31 Encounter for screening mammogram for malignant neoplasm of breast (principal) ==

== ENCOUNTER → 2024-07-13 | Outpatient (CLI) | payer OTHER ==
[~2024-07-13] MED LIST changes: +GABA-1172; +GABA-1172 PO; -GABA-282; -GABA-282 PO
== END ==
LOC: M PLAIMG 14:13
PROVIDERS: ATTEND Psychiatry & Neurology Neurology
DX: R53.1 Weakness (principal)

== ENCOUNTER → 2024-11-13 | Outpatient (CLI) | payer OTHER ==
[2024-11-16 15:57] LABS: ANGIOTENSIN 1 CONVERTING ENZYM 47 U/L (9-67)
[2024-11-21 19:37] LABS: ACETYLCHOLINE RCPTOR BINDING A < 0.30 nmol/L (<=0.30)
[2024-11-22 00:33] LABS: STRIATED MUSCLE AB SCREEN NEGATIVE (NEGATIVE)
== END ==
LOC: M PLALAB 12:16
PROVIDERS: ATTEND Psychiatry & Neurology Neurology
DX: G70.00 Myasthenia gravis without (acute) exacerbation (principal)

== ENCOUNTER → 2024-12-16 | Outpatient (CLI) | payer OTHER ==
[2024-12-16 18:33] LABS: RHEUMATOID FACTOR QUANT 10.4 IU/ML (<14)
[2024-12-21 16:03] LABS: ALDOLASE 2.6 U/L (< OR = 8.1)
[2024-12-21 16:11] LABS: ANA SCREEN, IFA NEGATIVE (NEGATIVE)
[2024-12-22 02:47] LABS: CARDIOLIPIN IGA ANTIBODY < 2.0 APL-U/mL (<20.0); CARDIOLIPIN IGG ANTIBODY < 2.0 GPL-U/mL (<20.0); CARDIOLIPIN IGM ANTIBODY < 2.0 MPL-U/mL (<20.0)
[2024-12-24 11:42] LABS: FACTOR V LEIDEN FOR MEDINET NEGATIVE
== END ==
LOC: M WUC 13:09
PROVIDERS: ATTEND Psychiatry & Neurology Neurology
DX: R53.83 Other fatigue (principal)

== ENCOUNTER → 2025-02-12 | Outpatient (CLI) | payer OTHER ==
[2025-02-12 18:29] LABS: BASO # 0.0 10^3/uL (0.0-0.2); BASO % 0.6 % (0.0-1.0); EOS # 0.1 10^3/uL (0.0-0.5); EOS % 1.3 % (0.0-3.0); LYMPH # 1.7 10^3/uL (1.5-5.0); LYMPH % 31.1 % (24.0-44.0); MONO # 0.5 10^3/uL (0.0-0.8); MONO % 8.9 % (2.0-8.0); NEUTROPHILS # 3.1 10^3/uL (1.5-8.5); NEUTROPHILS % 57.7 % (36.0-66.0); PLATELET COUNT, AUTOMATED 223 10^3/uL (150-450)
[2025-02-12 18:51] LABS: IRON (FE) 49.0 UG/DL (50-170); PERCENT SATURATION 12.4 % (13.2-45.0)
== END ==
LOC: M PLALAB 15:51
PROVIDERS: ATTEND Nurse Practitioner Family
DX: D64.9 Anemia, unspecified (principal)

== ENCOUNTER → 2025-03-18 | Outpatient (CLI) | payer OTHER ==
[2025-03-18 18:00] LABS: BASO # 0.0 10^3/uL (0.0-0.2); BASO % 0.5 % (0.0-1.0); EOS # 0.1 10^3/uL (0.0-0.5); EOS % 1.6 % (0.0-3.0); LYMPH # 2.1 10^3/uL (1.5-5.0); LYMPH % 32.1 % (24.0-44.0); MONO # 0.5 10^3/uL (0.0-0.8); MONO % 7.4 % (2.0-8.0); NEUTROPHILS # 3.7 10^3/uL (1.5-8.5); NEUTROPHILS % 57.9 % (36.0-66.0); PLATELET COUNT, AUTOMATED 170 10^3/uL (150-450)
[2025-03-18 18:29] LABS: ALT/SGPT 15 U/L (7.0-40); AST/SGOT 18 U/L (<34); CALCIUM LEVEL 8.6 MG/DL (8.5-10.1); CARBON DIOXIDE LEVEL 27 MMOL/L (20-31); CHLORIDE LEVEL 103 MMOL/L (98-107); CREATININE FOR GFR 0.60 MG/DL (0.55-1.30); GLOMERULAR FILTRATION RATE > 90.0 (>58); POTASSIUM SERUM 3.6 MMOL/L (3.5-5.1); SODIUM LEVEL 141 MMOL/L (136-145)
[2025-03-18 18:31] LABS: IMMUNOGLOBULIN E < 2.5 IU/ML (0-378)
[2025-03-22 12:21] LABS: LDH 146.0 U/L (100-200)
[2025-03-22 22:51] LABS: (LD) FRACTION 1 24.0 % (18-32); (LD) FRACTION 2 36.0 % (29-42); (LD) FRACTION 3 21.0 % (14-30); (LD) FRACTION 4 8.0 % (6-13); (LD) FRACTION 5 10.0 % (5-18)
[2025-03-23 06:27] LABS: ZINC PROTOPORPHYRIN 64.0 mcg/dL (<100)
[2025-03-23 12:47] LABS: TRYPTASE 4.0 mcg/L (<11.0)
== END ==
LOC: M LAB 17:24
PROVIDERS: ATTEND Nurse Practitioner Family
DX: D47.09 Other mast cell neoplasms of uncertain behavior (principal)

== ENCOUNTER → 2025-04-06 | Outpatient (CLI) | payer OTHER ==
[~2025-04-06] MED LIST changes: +CVS1CAP2 PO; +FAMO1TAB11 PO; +IBUP1TAB7 PO; +IRON65TA2 PO; +LEVOTAB10 PO; +MACR100C43 PO; +SERT50TA29 PO; +TEGR200T PO; +TIZA2CAP3 PO; +VARE0.5T PO; +VITA100093 PO; +ZONI100C67 PO; +[UNRECOGNIZED DRUG - CODE] NS; +[UNRECOGNIZED DRUG - CODE] RC
[2025-04-06 17:32] LABS: BASO # 0.1 10^3/uL (0.0-0.2); BASO % 0.7 % (0.0-1.0); EOS # 0.1 10^3/uL (0.0-0.5); EOS % 1.5 % (0.0-3.0); LYMPH # 2.2 10^3/uL (1.5-5.0); LYMPH % 32.5 % (24.0-44.0); MONO # 0.4 10^3/uL (0.0-0.8); MONO % 6.5 % (2.0-8.0); NEUTROPHILS # 4.0 10^3/uL (1.5-8.5); NEUTROPHILS % 58.2 % (36.0-66.0); PLATELET COUNT, AUTOMATED 225 10^3/uL (150-450)
[2025-04-06 17:57] LABS: ALT/SGPT 14 U/L (7.0-40); AST/SGOT 16 U/L (<34); CALCIUM LEVEL 8.9 MG/DL (8.5-10.1); CARBON DIOXIDE LEVEL 27 MMOL/L (20-31); CHLORIDE LEVEL 105 MMOL/L (98-107); CREATININE FOR GFR 0.61 MG/DL (0.55-1.30); GLOMERULAR FILTRATION RATE > 90.0 (>58); IRON (FE) 74 UG/DL (50-170); PERCENT SATURATION 20.4 % (13.2-45.0); POTASSIUM SERUM 3.7 MMOL/L (3.5-5.1); SODIUM LEVEL 139 MMOL/L (136-145)
== END ==
LOC: M WUC 13:18
PROVIDERS: ATTEND Nurse Practitioner Family
DX: D50.9 Iron deficiency anemia, unspecified (principal)

== ENCOUNTER 2025-04-12 07:08 | Day surgery (SDC) | payer OTHER ==
[~2025-04-12] VITALS: Ht 162.6 cm; Wt 92.1 kg
[~2025-04-12 07:08] MED LIST changes: -MACR100C43 PO; -TIZA2CAP3 PO; -[UNRECOGNIZED DRUG - CODE] RC
[2025-04-12] MEDS ORDERED: TIZA2CAP3 PO (07:32)
[2025-04-12] MEDS ORDERED: KETAMINE HCL 200 MG/20 ML VIAL As Ordered ONE (08:22)
[2025-04-12] MEDS ORDERED: MIDAZOLAM INJ 2 MG/2 ML VIAL As Ordered ONE (08:22)
[2025-04-12] MEDS ORDERED: GLYCOPYRROLATE INJ 0.2 MG/ML 2 ML VIAL As Ordered ONE (08:42)
[2025-04-12 09:05] VITALS: TEMP 97.7
[2025-04-12 09:32] VITALS: BP 141/75; O2SAT 100
== END 2025-04-12 09:58 | disposition home or self-care (01) ==
LOC: M OPP 07:08
PROVIDERS: ATTEND Internal Medicine Gastroenterology
DX: Z12.11 Encounter for screening for malignant neoplasm of colon (principal); C18.9 Malignant neoplasm of colon, unspecified; K57.30 Diverticulosis of large intestine without perforation or abscess without bleeding; K64.0 First degree hemorrhoids; K91.840 Postprocedural hemorrhage of a digestive system organ or structure following a digestive system procedure; K44.9 Diaphragmatic hernia without obstruction or gangrene; K31.89 Other diseases of stomach and duodenum; D50.9 Iron deficiency anemia, unspecified; K29.50 Unspecified chronic gastritis without bleeding; G47.30 Sleep apnea, unspecified; Z91.048 Other nonmedicinal substance allergy status; Z79.84 Long term (current) use of oral hypoglycemic drugs; Z79.899 Other long term (current) drug therapy; R56.9 Unspecified convulsions; F17.210 Nicotine dependence, cigarettes, uncomplicated
CPT/HCPCS: 43239; 45385; 88305; J1596; J2250

== ENCOUNTER 2025-04-12 14:02 | Day surgery (SDC) | payer OTHER ==
[~2025-04-12] VITALS: Ht 162.6 cm; Wt 92.1 kg
[~2025-04-12 14:02] MED LIST changes: +TIZA2CAP3 PO
[2025-04-12] MEDS ORDERED: SUCCINYLCHOLINE 100MG/5ML SYRINGE As Ordered ONE (14:35)
[2025-04-12] MEDS ORDERED: MIDAZOLAM INJ 2 MG/2 ML VIAL As Ordered ONE (14:35)
[2025-04-12] MEDS ORDERED: LIDOCAINE 2% 100 MG/5 ML SDV (FOR ANES.) As Ordered ONE (14:35)
[2025-04-12] MEDS ORDERED: ROCURONIUM BROMIDE 50MG/5ML VIAL As Ordered ONE (14:36)
[2025-04-12] MEDS ORDERED: dexAMETHasone 4 MG/ML 1 ML VIAL As Ordered ONE (15:12)
[2025-04-12] MEDS ORDERED: ONDANSETRON 4MG 2ML VIAL As Ordered ONE (15:12)
[2025-04-12 16:18] VITALS: TEMP 96.5
[2025-04-12 16:40] VITALS: BP 126/77; O2SAT 99
== END 2025-04-12 17:00 | disposition home or self-care (01) ==
LOC: M SDC 14:02
PROVIDERS: ATTEND Internal Medicine Gastroenterology
DX: K91.840 Postprocedural hemorrhage of a digestive system organ or structure following a digestive system procedure (principal); K57.30 Diverticulosis of large intestine without perforation or abscess without bleeding; Z86.0100 Personal history of colon polyps, unspecified
CPT/HCPCS: 45382; J0330; J1100; J2250; J2405; J3010

== ENCOUNTER 2025-04-17 18:00 | Emergency (ER) | payer OTHER ==
[~2025-04-17] VITALS: Ht 162.6 cm; Wt 93.2 kg
[2025-04-17 18:05] VITALS: TEMP 97.8
[2025-04-17 18:45] LABS: KETONE, URINE AUTO RFX NEGATIVE (NEGATIVE); MUCUS, URINE RFX LARGE (NEGATIVE); NITRITE, URINE AUTO RFX NEGATIVE (NEGATIVE); RBC, URINE AUTO RFX 0 /HPF (0-3); SQUAM EPITHELIAL CELL UR AURFX 6 /HPF (0-6)
[2025-04-17 18:53] LABS: LEUKOCYTE ESTERASE UR AUTO RFX 2+ (NEGATIVE); WBC, URINE AUTO RFX 17 /HPF (0-3)
[2025-04-17 19:04] LABS: BASO # 0.0 10^3/uL (0.0-0.2); BASO % 0.5 % (0.0-1.0); EOS # 0.2 10^3/uL (0.0-0.5); EOS % 2.8 % (0.0-3.0); LYMPH # 1.6 10^3/uL (1.5-5.0); LYMPH % 21.1 % (24.0-44.0); MONO # 0.6 10^3/uL (0.0-0.8); MONO % 7.7 % (2.0-8.0); NEUTROPHILS # 5.0 10^3/uL (1.5-8.5); NEUTROPHILS % 67.2 % (36.0-66.0); PLATELET COUNT, AUTOMATED 145 10^3/uL (150-450)
[2025-04-17 19:28] LABS: ALT/SGPT 17 U/L (7.0-40); AST/SGOT 14 U/L (<34); CALCIUM LEVEL 8.9 MG/DL (8.5-10.1); CARBON DIOXIDE LEVEL 26 MMOL/L (20-31); CHLORIDE LEVEL 104 MMOL/L (98-107); CREATININE FOR GFR 0.58 MG/DL (0.55-1.30); GLOMERULAR FILTRATION RATE > 90.0 (>58); POTASSIUM SERUM 3.6 MMOL/L (3.5-5.1); SODIUM LEVEL 140 MMOL/L (136-145)
[2025-04-17] MEDS ORDERED: ISOVUE-370 76% 100 ML VIAL As Ordered ONE (20:18)
[2025-04-17 21:00] VITALS: BP 143/86; O2SAT 98
[2025-04-17] MEDS ORDERED: MACR100C43 PO (22:08)
[2025-04-17] MEDS ORDERED: [UNRECOGNIZED DRUG - CODE] RC (22:18)
== END 2025-04-17 22:45 | disposition home or self-care (01) ==
LOC: M ED 18:00
DX: N39.0 Urinary tract infection, site not specified (principal); R14.0 Abdominal distension (gaseous); Z91.09 Other allergy status, other than to drugs and biological substances; Z79.1 Long term (current) use of non-steroidal anti-inflammatories (NSAID); Z79.84 Long term (current) use of oral hypoglycemic drugs; Z79.899 Other long term (current) drug therapy
CPT/HCPCS: 36415; 74177; 80048; 80076; 81001; 83690; 85025; 87086; 99284; Q9967

== ENCOUNTER → 2025-04-22 | Outpatient (REF) | payer OTHER ==
[~2025-04-22] MED LIST changes: +MACR100C43 PO; +[UNRECOGNIZED DRUG - CODE] RC
[2025-04-27 14:53] LABS: HPV APTIMA Not Detected (Not Detected)
== END ==
LOC: M SFHCWAGY 19:42
PROVIDERS: ATTEND Physician Assistant
DX: Z12.4 Encounter for screening for malignant neoplasm of cervix (principal); Z77.9 Other contact with and (suspected) exposures hazardous to health
CPT/HCPCS: 87624; G0123

== ENCOUNTER → 2025-04-28 | Outpatient (CLI) | payer OTHER | LOC: M SLEEP HO 13:32 | PROVIDERS: ATTEND Internal Medicine Pulmonary Disease | DX: G47.33 Obstructive sleep apnea (adult) (pediatric) (principal) ==

== ENCOUNTER → 2025-05-31 | Outpatient (CLI) | payer OTHER ==
[2025-05-31 16:38] LABS: PLATELET COUNT, AUTOMATED 217 10^3/uL (150-450)
[2025-05-31 17:06] LABS: INR 0.93
[2025-05-31 17:12] LABS: ALT/SGPT 19 U/L (7.0-40); AST/SGOT 14 U/L (<34); CALCIUM LEVEL 9.2 MG/DL (8.5-10.1); CARBON DIOXIDE LEVEL 30 MMOL/L (20-31); CHLORIDE LEVEL 105 MMOL/L (98-107); CREATININE FOR GFR 0.61 MG/DL (0.55-1.30); GLOMERULAR FILTRATION RATE > 90.0 (>58); POTASSIUM SERUM 3.7 MMOL/L (3.5-5.1); SODIUM LEVEL 144 MMOL/L (136-145)
== END ==
LOC: M PLALAB 16:05
PROVIDERS: ATTEND Physician Assistant Medical
DX: C18.7 Malignant neoplasm of sigmoid colon (principal)

== ENCOUNTER → 2025-06-23 | Outpatient (REF) | payer OTHER | LOC: M LAB REF 16:26 | PROVIDERS: ATTEND Colon & Rectal Surgery | DX: R19.7 Diarrhea, unspecified (principal) ==